=== PATIENT | female | born 1970 | race Caucasian/White ===

== ENCOUNTER → 2017-09-27 13:54 | Outpatient (CLI) | payer OTHER, SELFPAY ==
[2017-09-27 15:51] LABS: International Normalized Ratio 2.2; Prothrombin Time (Protime)PT. 24.1 SECONDS (11.7-14.9)
== END ==
PROVIDERS: Family Provider Family Medicine; PCP Family Medicine; Visit Provider Family Medicine
DX: Z79.01 Long term (current) use of anticoagulants (principal)
CPT/HCPCS: 36415; 85610

== ENCOUNTER → 2018-04-12 12:45 | Outpatient (CLI) | payer OTHER, SELFPAY ==
[2018-04-12 14:28] LABS: International Normalized Ratio 2.3; Prothrombin Time (Protime)PT. 25.8 SECONDS (11.7-14.9)
[2018-04-12 14:37] LABS: Hemoglobin A1c 5.6 % (4.2-6.3)
[2018-04-12 14:43] LABS: AST(SGOT) 18 U/L (15-37); Alanine Aminotransfer ALT/SGPT 25 U/L (13-56); Albumin, Serum 3.6 g/dL (3.2-5.0); Alkaline Phosphatase 42 U/L (45-117); Anion Gap 9 (5-15); BUN 13 mg/dL (7-18); BUN/Creat Ratio 16.9 RATIO (10-20); Calcium,Total 8.4 mg/dL (8.5-10.1); Chloride 106 mmol/L (98-107); Cholesterol 189 mg/dL (200); Creatinine, Serum 0.77 mg/dL (0.55-1.02); EST Glomerular Filtration Rate 86 mL/min (>60); Est Glom Filt Rate - Afr Amer 104 mL/min (>60); Globulin 3.5 g/dL (2.2-4.2); Glucose 77 mg/dL (74-106); High Density Lipoprotein 38 mg/dL; Potassium 4.3 mmol/L (3.5-5.1); Protein, Total 7.1 g/dL (6.4-8.2); Sodium Level 141 mmol/L (136-145); Triglycerides 147 mg/dL; Very Low Density Lipoprotein 29 mg/dL (5-40)
== END ==
PROVIDERS: Family Provider Family Medicine; PCP Family Medicine; Referring Provider Family Medicine; Visit Provider Family Medicine
DX: Z00.00 Encounter for general adult medical examination without abnormal findings (principal); D68.2 Hereditary deficiency of other clotting factors; E66.01 Morbid (severe) obesity due to excess calories
CPT/HCPCS: 36415; 80053; 80061; 83036; 85610

== ENCOUNTER → 2018-09-15 | Outpatient (CLI) | payer OTHER, SELFPAY ==
[2018-09-15 16:15] LABS: Prothrombin Time (Protime)PT. 38.9 SECONDS (11.7-14.9)
[2018-09-15 17:28] LABS: International Normalized Ratio 3.9
== END | disposition home or self-care (01) ==
LOC: MFPLAB 11:38
PROVIDERS: Family Provider Family Medicine; PCP Family Medicine; Referring Provider Family Medicine; Visit Provider Family Medicine
DX: D68.2 Hereditary deficiency of other clotting factors (principal)
CPT/HCPCS: 36415; 85610

== ENCOUNTER → 2018-09-22 | Outpatient (CLI) | payer OTHER, SELFPAY ==
[2018-09-22 12:42] LABS: International Normalized Ratio 2.3; Prothrombin Time (Protime)PT. 25.7 SECONDS (11.7-14.9)
== END | disposition home or self-care (01) ==
LOC: MFPLAB 11:14
PROVIDERS: Family Provider Family Medicine; PCP Family Medicine; Referring Provider Family Medicine; Visit Provider Family Medicine
DX: D68.2 Hereditary deficiency of other clotting factors (principal)
CPT/HCPCS: 36415; 85610

== ENCOUNTER → 2019-06-26 10:19 | Outpatient (CLI) | payer OTHER, SELFPAY ==
[2019-06-26 12:22] LABS: Prothrombin Time (Protime)PT. 38.5 SECONDS (11.7-14.9)
[2019-06-26 12:28] LABS: International Normalized Ratio 3.9
[2019-06-26 12:31] LABS: Hemoglobin A1c 5.4 % (4.2-6.3)
[2019-06-26 12:40] LABS: ALB/GLOB Ratio 1.1 RATIO (0.9-2.4); AST(SGOT) 18 U/L (15-37); Alanine Aminotransfer ALT/SGPT 20 U/L (13-56); Albumin, Serum 3.8 g/dL (3.2-5.0); Alkaline Phosphatase 35 U/L (45-117); Anion Gap 6 (5-15); BUN 9 mg/dL (7-18); BUN/Creat Ratio 10.9 RATIO (10-20); Calcium,Total 9.1 mg/dL (8.5-10.1); Chloride 110 mmol/L (98-107); Cholesterol 150 mg/dL (200); Creatinine, Serum 0.82 mg/dL (0.55-1.02); EST Glomerular Filtration Rate 79 mL/min (>60); Est Glom Filt Rate - Afr Amer 95 mL/min (>60); Globulin 3.5 g/dL (2.2-4.2); Glucose 83 mg/dL (74-106); High Density Lipoprotein 32 mg/dL; Potassium 4.4 mmol/L (3.5-5.1); Protein, Total 7.3 g/dL (6.4-8.2); Sodium Level 140 mmol/L (136-145)
== END ==
PROVIDERS: PCP Family Medicine; Referring Provider Family Medicine; Visit Provider Family Medicine
DX: E78.00 Pure hypercholesterolemia, unspecified (principal); E66.01 Morbid (severe) obesity due to excess calories; I10 Essential (primary) hypertension; Z79.01 Long term (current) use of anticoagulants
CPT/HCPCS: 36415; 80053; 82465; 83036; 83718; 85610

== ENCOUNTER → 2019-10-23 10:17 | Outpatient (CLI) | payer OTHER, SELFPAY ==
[2019-10-23 12:35] LABS: Absolute Lymphocyte Count 1.12 X10^3/uL (0.83-4.51); Absolute Neutrophil Count 2.5 X10^3/uL (2.0-7.7); Basophil# 0.03 X10^3/uL; Basophil% 0.7 % (0-1); Eosinophil# 0.13 X10^3/uL; Eosinophils% 3.1 % (0-5); Hemoglobin 13.6 g/dL (12.0-15.0); Lymphocyte # 1.12 X10^3/ul (4.0); Mean Corp Hgb Conc 31.6 g/dL (32-36); Mean Corpuscular Hgb 29.4 pg (27.0-32.0); Mean Corpuscular Volume 93.1 fL (81-99); Mean Platelet Vol. 10.9 fl (6.2-12.0); Monocyte% 9.6 % (0-10); NRBC Flagged by Analyzer 0 % (0-5); Neutrophil # 2.46 X10^3/uL (2.7-7.7); Neutrophil % 59.4 % (47-70); Platelet Count 271 K/mm3 (150-450); RBC Distribution Width CV 13.5 % (11.6-14.6); RBC Distribution Width SD 45.7 fl (35.1-43.9); Red Blood Count 4.62 M/mm3 (4.2-5.4); White Blood Count 4.2 K/mm3 (4.4-11.0)
[2019-10-23 12:44] LABS: International Normalized Ratio 3.2; Prothrombin Time (Protime)PT. 32.5 SECONDS (11.7-14.9)
[2019-10-23 13:49] LABS: AST(SGOT) 14 U/L (15-37); Alanine Aminotransfer ALT/SGPT 21 U/L (13-56); Albumin, Serum 3.4 g/dL (3.2-5.0); Alkaline Phosphatase 42 U/L (45-117); Anion Gap 8 (5-15); BUN 19 mg/dL (7-18); BUN/Creat Ratio 23.6 RATIO (10-20); Calcium,Total 8.6 mg/dL (8.5-10.1); Chloride 107 mmol/L (98-107); Creatinine, Serum 0.81 mg/dL (0.55-1.02); EST Glomerular Filtration Rate 81 mL/min (>60); Est Glom Filt Rate - Afr Amer 98 mL/min (>60); Ferritin 22 ng/mL (8-252); Globulin 3.4 g/dL (2.2-4.2); Glucose 88 mg/dL (74-106); Iron 105 ug/dL (50-170); Potassium 4.2 mmol/L (3.5-5.1); Protein, Total 6.8 g/dL (6.4-8.2); Sodium Level 138 mmol/L (136-145)
== END ==
PROVIDERS: PCP Family Medicine; Referring Provider Family Medicine; Visit Provider Family Medicine
DX: R25.2 Cramp and spasm (principal); Z79.01 Long term (current) use of anticoagulants
CPT/HCPCS: 36415; 80053; 82728; 83540; 85025; 85610

== ENCOUNTER → 2020-03-18 11:45 | Outpatient (CLI) | payer OTHER, SELFPAY ==
[2020-03-18 15:23] LABS: International Normalized Ratio 2.1; Prothrombin Time (Protime)PT. 22.6 SECONDS (11.7-14.9)
== END ==
PROVIDERS: PCP Family Medicine; Visit Provider Family Medicine
DX: D68.2 Hereditary deficiency of other clotting factors (principal)
CPT/HCPCS: 36415; 85610

== ENCOUNTER → 2020-07-02 09:43 | Outpatient (CLI) | payer OTHER, SELFPAY ==
[2020-07-02 12:51] LABS: Prothrombin Time (Protime)PT. 21.8 SECONDS (11.7-14.9)
[2020-07-02 13:07] LABS: Absolute Lymphocyte Count 0.99 X10^3/uL (0.83-4.51); Absolute Neutrophil Count 3.2 X10^3/uL (2.0-7.7); Basophil# 0.03 X10^3/uL; Basophil% 0.6 % (0-1); Eosinophil# 0.09 X10^3/uL; Eosinophils% 1.9 % (0-5); Hematocrit 45.1 % (37-47); Hemoglobin 14.4 g/dL (12.0-15.0); Lymphocyte # 0.99 X10^3/ul (4.0); Mean Corp Hgb Conc 31.9 g/dL (32-36); Mean Corpuscular Hgb 29.4 pg (27.0-32.0); Mean Corpuscular Volume 92.2 fL (81-99); Mean Platelet Vol. 10.7 fl (6.2-12.0); Monocyte% 8.5 % (0-10); NRBC Flagged by Analyzer 0 % (0-5); Neutrophil % 67.8 % (47-70); Platelet Count 236 K/mm3 (150-450); RBC Distribution Width CV 13.1 % (11.6-14.6); RBC Distribution Width SD 44.4 fl (35.1-43.9); Red Blood Count 4.89 M/mm3 (4.2-5.4); White Blood Count 4.7 K/mm3 (4.4-11.0)
[2020-07-02 13:26] LABS: ALB/GLOB Ratio 1.1 RATIO (0.9-2.4); AST(SGOT) 17 U/L (15-37); Alanine Aminotransfer ALT/SGPT 25 U/L (13-56); Albumin, Serum 3.9 g/dL (3.2-5.0); Alkaline Phosphatase 38 U/L (45-117); Anion Gap 6 (5-15); BUN 19 mg/dL (7-18); Calcium,Total 8.9 mg/dL (8.5-10.1); Chloride 107 mmol/L (98-107); Cholesterol 191 mg/dL (200); Creatinine, Serum 0.79 mg/dL (0.55-1.02); EST Glomerular Filtration Rate 82 mL/min (>60); Est Glom Filt Rate - Afr Amer 99 mL/min (>60); Ferritin 21 ng/mL (8-252); Globulin 3.4 g/dL (2.2-4.2); Glucose 78 mg/dL (74-106); High Density Lipoprotein 48 mg/dL; Magnesium 1.9 mg/dL (1.6-2.6); Potassium 3.9 mmol/L (3.5-5.1); Protein, Total 7.3 g/dL (6.4-8.2); Sodium Level 138 mmol/L (136-145); Triglycerides 81 mg/dL; Very Low Density Lipoprotein 16 mg/dL (5-40)
[2020-07-05 14:09] LABS: Beef <0.10 kU/L (Class 0); Chocolate <0.10 kU/L (Class 0); Corn <0.10 kU/L (Class 0); Egg, Whole <0.10 kU/L (Class 0); Milk (Cow) <0.10 kU/L (Class 0); Peanut <0.10 kU/L (Class 0); Pork <0.10 kU/L (Class 0); Shrimp <0.10 kU/L (Class 0); Soybean <0.10 kU/L (Class 0); Wheat <0.10 kU/L (Class 0)
[2020-07-05 20:48] LABS: Clam <0.10 kU/L (Class 0)
== END ==
PROVIDERS: PCP Family Medicine; Referring Provider Family Medicine; Visit Provider Family Medicine
DX: E78.5 Hyperlipidemia, unspecified (principal); Z91.013 Allergy to seafood; Z79.01 Long term (current) use of anticoagulants; R25.2 Cramp and spasm; E78.6 Lipoprotein deficiency
CPT/HCPCS: 36415; 80053; 80061; 82728; 83735; 85025; 85610; 86003; 86005

== ENCOUNTER → 2020-07-10 12:32 | Outpatient (CLI) | payer OTHER, SELFPAY ==
--- NOTE | 2020-07-10 12:35 | BI_ITS ---
MAMMOGRAPHY - BILATERAL SCREENING REASON FOR EXAM: Female, 49 years old. Routine annual screening examination. PERTINENT HISTORY: Non-contributory. TECHNIQUE: Digital bilateral breast lenora (3D mammographic acquisition) in the CC and MLO projections. 2-D mediolateral oblique (MLO) and craniocaudad (CC) views of both breasts were obtained. CAD: Full Field Digital Mammography with Computer Added Detection was performed. COMPARISON: Comparison is made with prior study dated 09/30/2012. FINDINGS: Breast Composition: There are scattered areas of fibroglandular density. There are no dominant masses or suspicious calcifications. Stable small benign-appearing bilateral axillary lymph nodes. No other significant abnormalities are identified. There has been no significant change since the prior study. BI/SCRN MAMM (CAD)W/LENORA BILAT IMPRESSION: Stable bilateral screening mammogram. Yearly follow-up mammogram recommended. (A) ASSESSMENT CATEGORY: BIRADS Category 2: Benign. A letter regarding these results will be sent to the patient by the facility within 30 days. Approximately 10% of breast cancers are not detected by mammography. A normal mammogram should not delay biopsy of a clinically suspicious abnormality. [id number] Electronically Signed: Brayden Gallego MD at 13:51 EST , Service support ,
== END ==
PROVIDERS: PCP Family Medicine; Referring Provider Family Medicine; Visit Provider Family Medicine
DX: Z12.31 Encounter for screening mammogram for malignant neoplasm of breast (principal)
CPT/HCPCS: 77063; 77067

== ENCOUNTER → 2021-02-07 11:49 | Outpatient (CLI) | payer OTHER, SELFPAY ==
[2021-02-07 15:09] LABS: Prothrombin Time (Protime)PT. 22.1 SECONDS (11.7-14.9)
== END ==
PROVIDERS: PCP Family Medicine; Referring Provider Family Medicine; Visit Provider Family Medicine
DX: Z79.01 Long term (current) use of anticoagulants (principal)
CPT/HCPCS: 36415; 85610

== ENCOUNTER → 2021-05-15 08:56 | Outpatient (CLI) | payer OTHER, SELFPAY ==
[2021-05-15 10:48] LABS: International Normalized Ratio 2.1; Prothrombin Time (Protime)PT. 22.4 SECONDS (11.7-14.9)
== END ==
PROVIDERS: PCP Family Medicine; Referring Provider Family Medicine; Visit Provider Family Medicine
DX: Z79.01 Long term (current) use of anticoagulants (principal)
CPT/HCPCS: 36415; 85610

== ENCOUNTER 2021-07-07 11:01 | Outpatient (CLI) | payer OTHER, SELFPAY ==
[2021-07-07 12:05] LABS: Absolute Lymphocyte Count 1.01 X10^3/uL (0.83-4.51); Absolute Neutrophil Count 3.3 X10^3/uL (2.0-7.7); Basophil# 0.02 X10^3/uL; Basophil% 0.4 % (0-1); Eosinophils% 2.1 % (0-5); Hematocrit 42.8 % (37-47); Hemoglobin 14.1 g/dL (12.0-15.0); Lymphocyte # 1.01 X10^3/ul (0.83-4.51); Mean Corp Hgb Conc 32.9 g/dL (32-36); Mean Corpuscular Hgb 29.7 pg (27.0-32.0); Mean Corpuscular Volume 90.1 fL (81-99); Mean Platelet Vol. 10.2 fl (6.2-12.0); Monocyte# 0.41 X10^3/uL; Monocyte% 8.5 % (0-10); NRBC Flagged by Analyzer 0 % (0-5); Neutrophil # 3.27 X10^3/uL (2.7-7.7); Neutrophil % 67.8 % (47-70); Platelet Count 231 K/mm3 (150-450); RBC Distribution Width CV 13.6 % (11.6-14.6); RBC Distribution Width SD 45.2 fl (35.1-43.9); Red Blood Count 4.75 M/mm3 (4.2-5.4); White Blood Count 4.8 K/mm3 (4.4-11.0)
[2021-07-07 12:15] LABS: International Normalized Ratio 1.8; Prothrombin Time (Protime)PT. 19.7 SECONDS (11.7-14.9)
[2021-07-07 12:56] LABS: Microalbumin,Random Urine 10.6 mg/L (NO RANGE EST.); Microalbumin:Creatinine Ratio 5.8 mg/g CRE (<30 mg/g CRE)
[2021-07-07 14:12] LABS: Hemoglobin A1c 5.2 % (3.8-5.6)
[2021-07-07 14:20] LABS: ALB/GLOB Ratio 1.1 RATIO (0.9-2.4); AST(SGOT) 14 U/L (15-37); Alanine Aminotransfer ALT/SGPT 24 U/L (13-56); Albumin, Serum 3.6 g/dL (3.2-5.0); Alkaline Phosphatase 33 U/L (45-117); Anion Gap 9 (5-15); BUN 17 mg/dL (7-18); BUN/Creat Ratio 25.3 RATIO (10-20); Calcium,Total 8.7 mg/dL (8.5-10.1); Chloride 107 mmol/L (98-107); Creatinine, Serum 0.67 mg/dL (0.55-1.02); EST Glomerular Filtration Rate 99 mL/min (>60); Est Glom Filt Rate - Afr Amer 120 mL/min (>60); Globulin 3.4 g/dL (2.2-4.2); Glucose 87 mg/dL (74-106); Sodium Level 140 mmol/L (136-145); Thyroid Stim Hormone (TSH) 2.56 uIU/mL (0.358-3.74)
[2021-07-10 20:39] LABS: HPV Reflexed? YES, CHARGE PATIENT
== END 2021-07-07 23:59 | disposition home or self-care (01) ==
LOC: MFPLAB 11:04
PROVIDERS: PCP Family Medicine; Visit Provider Family Medicine
DX: Z12.4 Encounter for screening for malignant neoplasm of cervix (principal); E66.01 Morbid (severe) obesity due to excess calories; D68.2 Hereditary deficiency of other clotting factors; R00.0 Tachycardia, unspecified; I10 Essential (primary) hypertension; R42 Dizziness and giddiness; Z79.01 Long term (current) use of anticoagulants
CPT/HCPCS: 36415; 80053; 82043; 82570; 83036; 84443; 85025; 85610; 87624; 88175; G0145

== ENCOUNTER 2021-08-04 15:00 | Outpatient (CLI) | payer OTHER, SELFPAY ==
[2021-08-04 17:44] LABS: Absolute Lymphocyte Count 1.37 X10^3/uL (0.83-4.51); Absolute Neutrophil Count 3.3 X10^3/uL (2.0-7.7); Basophil# 0.04 X10^3/uL; Basophil% 0.8 % (0-1); Eosinophil# 0.18 X10^3/uL; Eosinophils% 3.4 % (0-5); Hemoglobin 14.7 g/dL (12.0-15.0); Lymphocyte # 1.37 X10^3/ul (0.83-4.51); Lymphocyte % 25.8 % (19-41); Mean Corp Hgb Conc 32.7 g/dL (32-36); Mean Corpuscular Hgb 30.1 pg (27.0-32.0); Mean Platelet Vol. 10.3 fl (6.2-12.0); Monocyte% 7.5 % (0-10); NRBC Flagged by Analyzer 0 % (0-5); Neutrophil # 3.31 X10^3/uL (2.7-7.7); Neutrophil % 62.3 % (47-70); Platelet Count 276 K/mm3 (150-450); RBC Distribution Width CV 13.8 % (11.6-14.6); RBC Distribution Width SD 47.1 fl (35.1-43.9); Red Blood Count 4.89 M/mm3 (4.2-5.4); White Blood Count 5.3 K/mm3 (4.4-11.0)
[2021-08-04 18:02] LABS: International Normalized Ratio 2.6; Prothrombin Time (Protime)PT. 27.4 SECONDS (11.7-14.9)
[2021-08-04 18:09] LABS: AST(SGOT) 21 U/L (15-37); Alanine Aminotransfer ALT/SGPT 31 U/L (13-56); Albumin, Serum 3.6 g/dL (3.2-5.0); Alkaline Phosphatase 37 U/L (45-117); Anion Gap 4 (5-15); BUN 20 mg/dL (7-18); BUN/Creat Ratio 28.6 RATIO (10-20); Calcium,Total 9.1 mg/dL (8.5-10.1); Chloride 108 mmol/L (98-107); EST Glomerular Filtration Rate 94 mL/min (>60); Est Glom Filt Rate - Afr Amer 114 mL/min (>60); Globulin 3.5 g/dL (2.2-4.2); Glucose 94 mg/dL (74-106); Magnesium 2.1 mg/dL (1.6-2.6); Potassium 4.5 mmol/L (3.5-5.1); Protein, Total 7.1 g/dL (6.4-8.2); Sodium Level 138 mmol/L (136-145)
== END 2021-08-04 23:59 | disposition home or self-care (01) ==
PROVIDERS: PCP Family Medicine; Visit Provider Family Medicine
DX: R19.7 Diarrhea, unspecified (principal); Z79.01 Long term (current) use of anticoagulants
CPT/HCPCS: 36415; 80053; 83735; 85025; 85610

== ENCOUNTER → 2021-12-12 | Outpatient (CLI) | payer OTHER, SELFPAY ==
--- NOTE | 2021-12-12 12:44 | BI_ITS ---
MAMMOGRAPHY - BILATERAL SCREENING REASON FOR EXAM: Female, 51 years old. Routine annual screening examination. PERTINENT HISTORY: Non-contributory. TECHNIQUE: Digital bilateral breast bhaskar (3D mammographic acquisition) in the CC and MLO projections. 2-D mediolateral oblique (MLO) and craniocaudad (CC) views of both breasts were obtained. CAD: Full Field Digital Mammography with Computer Added Detection was performed. COMPARISON: Comparison is made with prior study dated 07/10/2020 and 09/30/2012. FINDINGS: Breast Composition: There are scattered areas of fibroglandular density. There are no dominant masses or suspicious calcifications. Stable benign-appearing bilateral axillary lymph nodes. No other significant abnormalities are identified. There has been no significant change since the prior study. BI/SCREENING MAMM (CAD), BILAT IMPRESSION: Stable bilateral screening mammogram. Yearly follow-up mammogram recommended. (A) ASSESSMENT CATEGORY: BIRADS Category 2: Benign. A letter regarding these results will be sent to the patient by the facility within 30 days. Approximately 10% of breast cancers are not detected by mammography. A normal mammogram should not delay biopsy of a clinically suspicious abnormality. [id number] Electronically Signed: Brayden Gallego MD at 14:14 EDT ,
== END | disposition home or self-care (01) ==
LOC: OPBI 12:43
PROVIDERS: PCP Family Medicine; Referring Provider Family Medicine; Visit Provider Family Medicine
DX: Z00.00 Encounter for general adult medical examination without abnormal findings (principal); Z12.31 Encounter for screening mammogram for malignant neoplasm of breast
CPT/HCPCS: 77067

== ENCOUNTER 2021-12-19 11:23 | Outpatient (RCR) | payer OTHER, SELFPAY ==
[2021-12-19 12:20] LABS: International Normalized Ratio 1.9; Prothrombin Time (Protime)PT. 21.8 SECONDS (11.7-14.9)
== END 2021-12-21 03:10 | disposition home or self-care (01) ==
LOC: LAB 11:23
PROVIDERS: PCP Family Medicine; Referring Provider Family Medicine; Visit Provider Family Medicine
DX: Z79.01 Long term (current) use of anticoagulants (principal); D68.2 Hereditary deficiency of other clotting factors
CPT/HCPCS: 36415; 85610

== ENCOUNTER → 2022-07-09 | Outpatient (CLI) | payer OTHER, SELFPAY ==
[2022-07-09 15:19] LABS: Absolute Lymphocyte Count 1.05 X10^3/uL (0.83-4.51); Absolute Neutrophil Count 3.3 X10^3/uL (2.0-7.7); Basophil# 0.02 X10^3/uL; Basophil% 0.4 % (0-1); Eosinophil# 0.08 X10^3/uL; Eosinophils% 1.7 % (0-5); Hematocrit 45.6 % (37-47); Hemoglobin 14.3 g/dL (12.0-15.0); Lymphocyte # 1.05 X10^3/ul (0.83-4.51); Lymphocyte % 21.8 % (19-41); Mean Corp Hgb Conc 31.4 g/dL (32-36); Mean Corpuscular Hgb 29.5 pg (27.0-32.0); Mean Platelet Vol. 10.6 fl (6.2-12.0); Monocyte# 0.36 X10^3/uL; Monocyte% 7.5 % (0-10); NRBC Flagged by Analyzer 0 % (0-5); Neutrophil # 3.29 X10^3/uL (2.7-7.7); Neutrophil % 68.4 % (47-70); Platelet Count 243 K/mm3 (150-450); RBC Distribution Width CV 14.3 % (11.6-14.6); RBC Distribution Width SD 49.5 fl (35.1-43.9); Red Blood Count 4.85 M/mm3 (4.2-5.4); White Blood Count 4.8 K/mm3 (4.4-11.0)
[2022-07-09 15:29] LABS: Hemoglobin A1c 5.4 % (3.8-5.6)
[2022-07-09 15:33] LABS: ALB/GLOB Ratio 1.1 RATIO (0.9-2.4); AST(SGOT) 15 U/L (15-37); Alanine Aminotransfer ALT/SGPT 24 U/L (13-56); Albumin, Serum 3.7 g/dL (3.2-5.0); Alkaline Phosphatase 31 U/L (45-117); Anion Gap 7 (5-15); BUN 18 mg/dL (7-18); BUN/Creat Ratio 26.4 RATIO (10-20); Calcium,Total 8.9 mg/dL (8.5-10.1); Chloride 105 mmol/L (98-107); Cholesterol 233 mg/dL (200); Creatinine, Serum 0.68 mg/dL (0.55-1.02); EST Glomerular Filtration Rate 97 mL/min (>60); Est Glom Filt Rate - Afr Amer 117 mL/min (>60); Globulin 3.3 g/dL (2.2-4.2); Glucose 84 mg/dL (74-106); High Density Lipoprotein 50 mg/dL; Potassium 4.7 mmol/L (3.5-5.1); Sodium Level 140 mmol/L (136-145); Thyroid Stim Hormone (TSH) 2.04 uIU/mL (0.358-3.74); Triglycerides 91 mg/dL; Very Low Density Lipoprotein 18 mg/dL (5-40)
[2022-07-09 15:37] LABS: Microalbumin,Random Urine 7.6 mg/L (NO RANGE EST.); Microalbumin:Creatinine Ratio 6.7 mg/g CRE (<30 mg/g CRE)
== END | disposition home or self-care (01) ==
LOC: MFPLAB 11:30
PROVIDERS: PCP Family Medicine; Referring Provider Family Medicine; Visit Provider Family Medicine
DX: Z00.00 Encounter for general adult medical examination without abnormal findings (principal)
CPT/HCPCS: 36415; 80053; 80061; 82043; 82570; 83036; 84443; 85025

== ENCOUNTER 2022-11-06 16:20 | Outpatient (CLI) | payer OTHER, SELFPAY ==
[2022-11-06 18:16] LABS: International Normalized Ratio 1.8; Prothrombin Time (Protime)PT. 20.9 SECONDS (11.7-14.9)
== END 2022-11-06 23:59 | disposition home or self-care (01) ==
LOC: MFPLAB 16:21
PROVIDERS: PCP Family Medicine; Visit Provider Family Medicine
DX: Z79.01 Long term (current) use of anticoagulants (principal)
CPT/HCPCS: 36415; 85610

== ENCOUNTER → 2022-12-02 | Outpatient (CLI) | payer OTHER, SELFPAY ==
[2022-12-02 18:01] LABS: International Normalized Ratio 1.9; Prothrombin Time (Protime)PT. 21.7 SECONDS (11.7-14.9)
== END | disposition home or self-care (01) ==
LOC: MFPLAB 14:40
PROVIDERS: PCP Family Medicine; Visit Provider Family Medicine
DX: D68.2 Hereditary deficiency of other clotting factors (principal)
CPT/HCPCS: 36415; 85610

== ENCOUNTER → 2022-12-16 | Outpatient (CLI) | payer OTHER, SELFPAY ==
--- NOTE | 2022-12-16 10:45 | BI_ITS ---
MAMMOGRAPHY - BILATERAL SCREENING REASON FOR EXAM: Female, 52 years old. Routine annual screening examination. PERTINENT HISTORY: Non-contributory. TECHNIQUE: Digital bilateral breast lenora (3D mammographic acquisition) in the CC and MLO projections. 2-D mediolateral oblique (MLO) and craniocaudad (CC) views of both breasts were obtained. CAD: Full Field Digital Mammography with Computer Added Detection was performed. COMPARISON: Comparison is made with prior study dated December 12, 2021 and July 10, 2020. FINDINGS: Breast Composition: There are scattered areas of fibroglandular density. There are no dominant masses or suspicious calcifications. Stable small benign-appearing bilateral axillary lymph nodes. No other significant abnormalities are identified. There has been no significant change since the prior study. BI/SCRN MAMM (CAD)W/LENORA BILAT IMPRESSION: Stable bilateral screening mammogram. Yearly follow-up mammogram recommended. (A) ASSESSMENT CATEGORY: BIRADS Category 2: Benign. A letter regarding these results will be sent to the patient by the facility within 30 days. Approximately 10% of breast cancers are not detected by mammography. A normal mammogram should not delay biopsy of a clinically suspicious abnormality. [id number] Electronically Signed: Brayden Gallego MD at 12:20 EDT ,
== END | disposition home or self-care (01) ==
LOC: OPBI 10:33
PROVIDERS: PCP Family Medicine; Referring Provider Family Medicine; Visit Provider Family Medicine
DX: Z12.31 Encounter for screening mammogram for malignant neoplasm of breast (principal)
CPT/HCPCS: 77063; 77067

== ENCOUNTER → 2023-04-22 | Outpatient (CLI) | payer OTHER, SELFPAY ==
[2023-04-22 18:06] LABS: International Normalized Ratio 2.1; Prothrombin Time (Protime)PT. 23.8 SECONDS (11.7-14.9)
== END | disposition home or self-care (01) ==
LOC: MFPLAB 14:38
PROVIDERS: PCP Family Medicine; Visit Provider Family Medicine
DX: D68.2 Hereditary deficiency of other clotting factors (principal)
CPT/HCPCS: 36415; 85610

== ENCOUNTER → 2023-07-20 | Outpatient (CLI) | payer OTHER, SELFPAY ==
--- NOTE | 2023-07-20 09:00 | LES_PTH ---
PATHOLOGY RESULTS PATIENT: GAYLE SOTELO LOC: [facility] U#:[id number] AGE/SX: 52/F ROOM: RE07/20/[address]: Dr. Giovany Whittington MD : 1970 BED: DIS: 07/20/2023 SPEC #: [id number] RECD: 07/20/23 10:58 STATUS: ADILSON SANJAY #: [id number] MARY: 07/20/23 09:[address]: Giovany Whittington DEPT: SURGICAL PATHOLOGY RECD BY: Celia Vick ENTERED: 07/20/23 10:59 SP TYPE: Lesion Tissues: Skin of forehead Procedures: Surgery Specimen Level III HEADER OPERATION: Shave biopsy skin PRE-OP DIAGNOSIS: Nonhealing lesion TISSUE SUBMITTED: Left forehead shave biopsy MICROSCOPIC DIAGNOSIS Left forehead lesion, shave biopsy: Basal cell carcinoma, extending up to the deep margin of the specimen. DARLENE:heaven 07/21/2023 MICROSCOPIC DESCRIPTION Slides are reviewed. GROSS DESCRIPTION Received in fixative is one container labeled with the patient's name and designated forehead shave biopsy. The specimen consists of a shave biopsy of moralez-white skin measuring 0.6 x 0.4 x 0.1 cm. The specimen is inked, bisected and submitted entirely in one cassette. / SJ:rg 07/20/2023 TC:0 [facility]: [id number]
[2023-07-20 12:16] LABS: Absolute Lymphocyte Count 0.85 X10^3/uL (0.83-4.51); Absolute Neutrophil Count 2.7 X10^3/uL (2.0-7.7); Basophil# 0.03 X10^3/uL; Basophil% 0.7 % (0-1); Eosinophil# 0.07 X10^3/uL; Eosinophils% 1.7 % (0-5); Hemoglobin 13.9 g/dL (12.0-15.0); Lymphocyte # 0.85 X10^3/ul (0.83-4.51); Lymphocyte % 21.2 % (19-41); Mean Corp Hgb Conc 32.3 g/dL (32-36); Mean Corpuscular Volume 92.9 fL (81-99); Mean Platelet Vol. 10.4 fl (6.2-12.0); Monocyte# 0.32 X10^3/uL; NRBC Flagged by Analyzer 0 % (0-5); Neutrophil # 2.73 X10^3/uL (2.7-7.7); Neutrophil % 68.2 % (47-70); Platelet Count 231 K/mm3 (150-450); RBC Distribution Width SD 47.8 fl (35.1-43.9); Red Blood Count 4.63 M/mm3 (4.2-5.4)
[2023-07-20 12:27] LABS: International Normalized Ratio 2.2; Prothrombin Time (Protime)PT. 24.2 SECONDS (11.7-14.9)
[2023-07-20 12:49] LABS: Creatinine, Urine (random) < 13.00 mg/dL (NO RANGE EST.); Microalbumin,Random Urine < 5.0 mg/L (NO RANGE EST.)
[2023-07-20 13:21] LABS: ALB/GLOB Ratio 1.1 RATIO (0.9-2.4); AST(SGOT) 31 U/L (15-37); Alanine Aminotransfer ALT/SGPT 61 U/L (13-56); Albumin, Serum 3.9 g/dL (3.2-5.0); Alkaline Phosphatase 42 U/L (45-117); Anion Gap 6 (5-15); BUN 20 mg/dL (7-18); BUN/Creat Ratio 27.6 RATIO (10-20); Calcium,Total 9.2 mg/dL (8.5-10.1); Chloride 108 mmol/L (98-107); Cholesterol 179 mg/dL (200); Creatinine, Serum 0.72 mg/dL (0.55-1.02); EST Glomerular Filtration Rate 90 mL/min (>60); Est Glom Filt Rate - Afr Amer 109 mL/min (>60); Ferritin 122 ng/mL (8-252); Globulin 3.4 g/dL (2.2-4.2); Glucose 81 mg/dL (74-106); High Density Lipoprotein 42 mg/dL; Potassium 4.1 mmol/L (3.5-5.1); Protein, Total 7.3 g/dL (6.4-8.2); Sodium Level 140 mmol/L (136-145); Triglycerides 55 mg/dL; Very Low Density Lipoprotein 11 mg/dL (5-40)
[2023-07-23 10:09] LABS: QNTFERON TB Mitogen Value > 10.00 IU/mL (.); QNTFERON TB Nil Value 0 IU/mL (.); QNTFERON TB1+ Ag Value 0.03 IU/mL (.); QNTFERON TB2+ Ag Value 0.01 IU/mL (.); QNTIFERON TB Positive Criteria Negative (Negative)
== END | disposition home or self-care (01) ==
PROVIDERS: PCP Family Medicine; Referring Provider Family Medicine; Visit Provider Family Medicine
DX: L98.9 Disorder of the skin and subcutaneous tissue, unspecified (principal); D68.2 Hereditary deficiency of other clotting factors; I10 Essential (primary) hypertension; N95.1 Menopausal and female climacteric states
CPT/HCPCS: 36415; 80053; 80061; 82043; 82570; 82728; 85025; 85610; 86480; 88304; 88305

== ENCOUNTER 2023-08-13 05:53 | Day surgery (SDC) | payer OTHER, SELFPAY ==
[2023-08-13 06:25] VITALS: BP 91/45; PULSE 72; RESP 17; TEMP 37; O2SAT 100; BMI 25.0
--- NOTE | 2023-08-13 07:07 | PCM.HP.BLA ---
History and Physical Date of Admission: 08/13/23 Interim note: Pt examined and there are no changes to the exam of 07/27/23. Pt with hx of bx lesion forehead which was consistent with BCC with + deep margin. She presents for excision of site with FS evaluation of margins. Assessment & Plan Assessment/Plan (1) Basal cell carcinoma (BCC) of forehead: PLAN: Plan BCC forehead--for excision with FS
[2023-08-13] MEDS: Povidone Iodine 30 ML Opthalmic Sol 1 DRP (07:35)
[2023-08-13] MEDS: Lidocaine 1% /Epi 1:100 9 ML, Sodium Bicarbonate 1 MEQ OPERA.SITE (07:41)
[2023-08-13 07:45] VITALS: BP 103/43; BP 88/38; BP 98/45; O2SAT 100; O2SAT 98; O2SAT 99
--- NOTE | 2023-08-13 07:57 | LES_PTH ---
PATIENT: GAYLE SOTELO LOC: [facility] U#:[id number] AGE/SX: 52/F ROOM: RE08/13/[address]: Dr. Vera Deleon MD : 1970 BED: DIS: 08/13/2023 SPEC #: [id number] RECD: 08/13/23 08:54 STATUS: ADILSON GRACE #: [id number] MARY: 08/13/23 07:[address]: Vera Deelon DEPT: SURGICAL PATHOLOGY RECD BY: Eleuterio Matthews ENTERED: 08/13/23 08:55 SP TYPE: Lesion OTHR DR: Dr. Giovany Whittington MD Tissues: Skin of forehead Procedures: Frozen Section (charge) Surgery Specimen Level IV HEADER OPERATION: Excision basal cell carcinoma forehead with frozen section PRE-OP DIAGNOSIS: Basal cell carcinoma (BBC) of forehead TISSUE SUBMITTED: Basal cell carcinoma, forehead FROZEN SECTION DIAGNOSIS Forehead lesion, excisional biopsy; Margins are free of tumor. SJ:heaven 08/13/23 MICROSCOPIC DIAGNOSIS Lesion of forehead, excision, biopsy; Basal cell carcinoma, completely excised. Solar elastosis Cicatrix. See comment. JUDD/ 08/16/2023 COMMENT Reference is made to the patient's left forehead lesion shave biopsy ([id number]) in which basal cell carcinoma extending to deep margin was identified. MICROSCOPIC DESCRIPTION Slides are reviewed. GROSS DESCRIPTION Received fresh for frozen section diagnosis labeled with the patient's name is a specimen designated Forehead lesion. The specimen consists of a piece of moralez-white skin ellipse measuring 1.5 x 0.75 x 0.25 cm. This specimen is oriented by a surgical gauze piece and measures and inked follows: The specimen is inked as follows: 12 to 3 o'clock - black, 3 to 6 o'clock - blue, 6 to 9 o'clock - green and 9 to 12 o'clock - yellow. The Specimen is serially sectioned and submitted entirely for frozen section diagnosis in one cassette. DARLENE/ 08/13/2023 TC:0 CPT: 22840,20766
--- NOTE | 2023-08-13 08:15 | DCINST_ITS ---
Discharge Instructions Dressing / Incision Additional Dressing/Incision Instructions:: Keep your head elevated (recliner position) for the next 2-3 nights to prevent swelling and bruising. Keep the Steri-Strips dry and in place until seen in the office. Take the oral antibiotic (Keflex) 2 times a day until finished. Follow Up Care Please Follow Up With: Vera Deleon MD When: In 1 to 2 weeks Test Results: Test results from this visit will be discussed in further detail at your follow- up appointment, if applicable. Discharge Plan Admission Attending Provider: Vera Deleon Primary Care Provider: Giovany Whittington Discharge Orders/Prescriptions Prescriptions: No Action warfarin 7.5 mg tablet 7 mg PO DAILY Rx Instructions: takes 7mg daily, 8mg on fridays pravastatin 40 mg tablet 40 mg PO DAILY losartan 25 mg tablet 25 mg PO DAILY norethindrone (contraceptive) 0.35 mg tablet 0.35 mg PO DAILY magnesium hydroxide 400 mg (170 mg magnesium) tablet,chewable PO potassium chloride 10 mEq tablet extended release 10 meq PO DAILY diltiazem HCl 60 mg capsule,extended release 12 hr 60 mg PO DAILY clonidine HCl 0.1 mg tablet 0.1 mg PO DAILY Referrals / Follow Up: Giovany Whittington MD [Primary Care Provider] - Disposition Disposition (needs filled in before D/C Order can be placed): Home, Self Care
--- NOTE | 2023-08-13 08:17 | OP.PCM_ITS ---
Problems Associated Problem List Diagnoses (1) Basal cell carcinoma (BCC) of forehead: Report of Operation Date of Procedure: 08/13/23 Pre-Operative Diagnosis: Biopsy-proven BCC of forehead Post-Operative Diagnosis: Same Surgery/Procedure Performed:: Excision BCC forehead with frozen section (1.5 cm) with intermediate closure Surgeon: Vera Deleon Type of Anesthesia: Local Specimen's removed: BCC forehead Estimated Blood Loss (mL): Minimal Description of Procedure: The patient presents with a biopsy-proven BCC of her left forehead. The deep margin had been positive for residual malignancy. She presents for reexcision to ensure clear margins. The patient is brought to the operating room and placed on the operating room table in the supine position. The face is prepped and draped in the usual sterile fashion. We initially began with demarcating an adequate margin around the grossly positive site. 1% lidocaine with epinephrine buffered with sodium bicarb is then injected in the periphery of this area. Following an adequate amount of time to allow for the effectiveness of the medication, an elliptical incision is made around the site down to fascia. Hemostasis is controlled with cautery. While maintaining orientation of the specimen, it is sent to pathology to check the margins. Frozen section demonstrates clear margins and therefore the wound is closed. 5- 0 Monocryl sutures used to approximate subcutaneous tissue and dermis. Skin edges were approximated with a running subcuticular Monocryl suture. Further refinement the closure was done with a 5-0 fast-absorbing gut. Dermabond and Steri-Strips were placed on the site. She tolerated the procedure well was taken to the recovery area in an awake and stable condition. Needle and sponge counts are correct. Complications None Admit VTE Documentation VTE Mechan Device Prophylaxis: None Reason prophylaxis not ordered:: Treatment Not Indicated
--- NOTE | 2023-08-13 08:21 | DCINST_ITS ---
Discharge Instructions Dressing / Incision Additional Dressing/Incision Instructions:: Keep your head elevated (recliner position) for the next 2-3 nights to prevent swelling and bruising. Keep the Steri-Strips dry and in place until seen in the office. Take the oral antibiotic (Keflex) 2 times a day until finished. Follow Up Care Please Follow Up With: Vera Deleon MD Test Results: Test results from this visit will be discussed in further detail at your follow- up appointment, if applicable. Discharge Plan Admission Attending Provider: Vera Deleon Primary Care Provider: Giovany Whittington Discharge Orders/Prescriptions Prescriptions: New cephalexin 500 mg capsule 500 mg PO BID Qty: 10 0RF No Action warfarin 7.5 mg tablet 7 mg PO DAILY Rx Instructions: takes 7mg daily, 8mg on fridays pravastatin 40 mg tablet 40 mg PO DAILY losartan 25 mg tablet 25 mg PO DAILY norethindrone (contraceptive) 0.35 mg tablet 0.35 mg PO DAILY magnesium hydroxide 400 mg (170 mg magnesium) tablet,chewable PO potassium chloride 10 mEq tablet extended release 10 meq PO DAILY diltiazem HCl 60 mg capsule,extended release 12 hr 60 mg PO DAILY clonidine HCl 0.1 mg tablet 0.1 mg PO DAILY Referrals / Follow Up: Giovany Whittington MD [Primary Care Provider] - Disposition Disposition (needs filled in before D/C Order can be placed): Home, Self Care
[2023-08-13 08:38] VITALS: BP 91/45; BP 95/44; PULSE 62; RESP 14; TEMP 36.9; O2SAT 97
== END 2023-08-13 08:40 | disposition home or self-care (01) ==
LOC: SDC 05:54 → AC 05:55
PROVIDERS: PCP Family Medicine; Referring Provider Plastic Surgery; Visit Provider Plastic Surgery
PROC: (CPT 11642; principal; 2023-08-13 07:20)
DX: C44.319 Basal cell carcinoma of skin of other parts of face (principal); L57.8 Other skin changes due to chronic exposure to nonionizing radiation; I10 Essential (primary) hypertension; E78.00 Pure hypercholesterolemia, unspecified; Z79.01 Long term (current) use of anticoagulants; Z79.899 Other long term (current) drug therapy; Z87.2 Personal history of diseases of the skin and subcutaneous tissue
CPT/HCPCS: 11642; 12051; 88305; 88331

== ENCOUNTER → 2023-12-07 | Outpatient (CLI) | payer OTHER, SELFPAY ==
[2023-12-07 15:30] LABS: International Normalized Ratio 2.5; Prothrombin Time (Protime)PT. 26.6 SECONDS (11.7-14.9)
== END | disposition home or self-care (01) ==
LOC: MFPLAB 14:01
PROVIDERS: PCP Family Medicine; Visit Provider Family Medicine
DX: D68.2 Hereditary deficiency of other clotting factors (principal)
CPT/HCPCS: 36415; 85610

== ENCOUNTER 2024-02-08 13:24 | Outpatient (RCR) | payer OTHER, SELFPAY ==
[2024-02-08 15:32] LABS: International Normalized Ratio 2.3; Prothrombin Time (Protime)PT. 24.9 SECONDS (11.7-14.9)
== END 2024-02-08 18:00 | disposition home or self-care (01) ==
LOC: MTLAB 13:24
PROVIDERS: PCP Family Medicine; Referring Provider Family Medicine; Visit Provider Family Medicine
DX: D68.2 Hereditary deficiency of other clotting factors (principal)
CPT/HCPCS: 36415; 85610

== ENCOUNTER 2024-05-04 11:25 | Outpatient (CLI) | payer OTHER, SELFPAY ==
[2024-05-04 16:10] LABS: International Normalized Ratio 2.9; Prothrombin Time (Protime)PT. 30.1 SECONDS (11.7-14.9)
== END 2024-05-04 23:59 | disposition home or self-care (01) ==
LOC: MFPLAB 11:25
PROVIDERS: PCP Family Medicine; Referring Provider Family Medicine; Visit Provider Family Medicine
DX: D68.2 Hereditary deficiency of other clotting factors (principal)
CPT/HCPCS: 36415; 85610

== ENCOUNTER → 2024-07-17 | Outpatient (CLI) | payer OTHER, SELFPAY ==
[2024-07-17 17:45] LABS: Hematocrit 40.7 % (37-47); Hemoglobin 12.9 g/dL (12.0-15.0); Mean Corp Hgb Conc 31.7 g/dL (32-36); Mean Corpuscular Hgb 29.7 pg (27.0-32.0); Mean Corpuscular Volume 93.6 fL (81-99); Mean Platelet Vol. 10.6 fl (6.2-12.0); Platelet Count 217 K/mm3 (150-450); RBC Distribution Width CV 12.9 % (11.6-14.6); RBC Distribution Width SD 44.8 fl (35.1-43.9); Red Blood Count 4.35 M/mm3 (4.2-5.4); White Blood Count 4.9 K/mm3 (4.4-11.0)
[2024-07-17 17:53] LABS: Microalbumin,Random Urine < 5.0 mg/L (NO RANGE EST.)
[2024-07-17 17:57] LABS: International Normalized Ratio 3.8; Prothrombin Time (Protime)PT. 38.2 SECONDS (11.7-14.9)
[2024-07-17 18:18] LABS: ALB/GLOB Ratio 1.1 RATIO (0.9-2.4); AST(SGOT) 24 U/L (15-37); Alanine Aminotransfer ALT/SGPT 35 U/L (13-56); Albumin, Serum 3.9 g/dL (3.2-5.0); Alkaline Phosphatase 41 U/L (45-117); Anion Gap 4 (5-15); BUN 24 mg/dL (7-18); BUN/Creat Ratio 34.3 RATIO (10-20); Calcium,Total 9.5 mg/dL (8.5-10.1); Chloride 106 mmol/L (98-107); EST Glomerular Filtration Rate 93 mL/min (>60); Est Glom Filt Rate - Afr Amer 113 mL/min (>60); Globulin 3.6 g/dL (2.2-4.2); Glucose 89 mg/dL (74-106); Potassium 4.2 mmol/L (3.5-5.1); Protein, Total 7.5 g/dL (6.4-8.2); Sodium Level 140 mmol/L (136-145)
== END | disposition home or self-care (01) ==
LOC: MFPLAB 15:15
PROVIDERS: PCP Family Medicine; Referring Provider Family Medicine; Visit Provider Family Medicine
DX: D68.2 Hereditary deficiency of other clotting factors (principal); I10 Essential (primary) hypertension; N95.1 Menopausal and female climacteric states
CPT/HCPCS: 36415; 80053; 82043; 82570; 85027; 85610

== ENCOUNTER → 2024-07-24 | Outpatient (CLI) | payer OTHER, SELFPAY ==
[2024-07-24 16:19] LABS: Prothrombin Time (Protime)PT. 31.9 SECONDS (11.7-14.9)
== END | disposition home or self-care (01) ==
LOC: MFPLAB 11:41
PROVIDERS: PCP Family Medicine; Referring Provider Family Medicine; Visit Provider Family Medicine
DX: Z79.01 Long term (current) use of anticoagulants (principal)
CPT/HCPCS: 36415; 85610

== ENCOUNTER → 2024-08-03 | Outpatient (CLI) | payer OTHER, SELFPAY ==
--- NOTE | 2024-08-03 13:36 | BI_ITS ---
PROCEDURE: SCRN MAMM (CAD)W/LENORA BILAT REASON FOR EXAM: F, Age 53 y/o , SCFREENING. No family history. TECHNIQUE: Bilateral screening digital breast tomosynthesis with 2D and 3D images. Computer aided detection. COMPARISON: Prior exam(s) dating back to December 16, 2022. FINDINGS: The breasts are heterogeneously dense which may obscure small masses. Stable examination. No suspicious masses, areas of developing architectural distortion, or suspicious calcifications. BI/SCRN MAMM (CAD)W/LENORA BILAT IMPRESSION: BI-RADS 1: NEGATIVE. RECOMMEND ANNUAL MAMMOGRAPHIC SCREENING. Follow-up code: Routine Follow-up The patient will be notified of the results by letter. Reading Location: [id number]
--- NOTE | 2024-08-03 13:36 | BD_ITS ---
PROCEDURE: DEXA BONE DENSITY STUDY REASON FOR EXAM: F, age 53 y/o . Postmenopausal. TECHNIQUE: DEXA scan of the lumbar spine and both hips. COMPARISON: None. FINDINGS: Lumbar Spine (L1-L4): g/cm2 (0.893)/T-score (-1.4)/Z-score (-0.5) findings are suggestive of osteopenia with a low fracture risk. Left Femur Total: g/cm2 (0.931)/T-score (-0.1)/Z-score (0.5) Left Femoral Neck: g/cm2 (0.734)/T-score (-1.0)/Z-score (-0.1) Right Femur Total: g/cm2 (0.843)/T-score (-0.8)/Z-score (-0.2) Right Femoral Neck: g/cm2 (0.696)/T-score (-1.4)/Z-score (-0.5) BD/Dexa Bone Density Study IMPRESSION: The patient is considered osteopenic as outlined below according to [employer] (WHO) criteria with a low fracture risk. Reading Location: [facility]
== END | disposition home or self-care (01) ==
LOC: OPBD 13:14
PROVIDERS: PCP Family Medicine; Referring Provider Family Medicine; Visit Provider Family Medicine
DX: Z12.31 Encounter for screening mammogram for malignant neoplasm of breast (principal); M85.88 Other specified disorders of bone density and structure, other site
CPT/HCPCS: 77063; 77067; 77080

== ENCOUNTER → 2024-08-09 | Outpatient (CLI) | payer OTHER, SELFPAY ==
[2024-08-09 15:17] LABS: International Normalized Ratio 2.3; Prothrombin Time (Protime)PT. 25.6 SECONDS (11.7-14.9)
== END | disposition home or self-care (01) ==
LOC: MFPLAB 10:58
PROVIDERS: PCP Family Medicine; Referring Provider Family Medicine; Visit Provider Family Medicine
DX: Z79.01 Long term (current) use of anticoagulants (principal)
CPT/HCPCS: 36415; 85610

== ENCOUNTER 2024-10-18 12:07 | Outpatient (CLI) | payer OTHER, SELFPAY ==
[2024-10-18 16:12] LABS: International Normalized Ratio 1.8; Prothrombin Time (Protime)PT. 21.5 SECONDS (11.7-14.9)
== END 2024-10-18 23:59 | disposition home or self-care (01) ==
LOC: MFPLAB 12:08
PROVIDERS: PCP Family Medicine; Referring Provider Family Medicine; Visit Provider Family Medicine
DX: Z79.01 Long term (current) use of anticoagulants (principal)
CPT/HCPCS: 36415; 85610

== ENCOUNTER 2024-11-21 10:41 | Outpatient (RCR) | payer OTHER, SELFPAY ==
[2024-11-21 13:17] LABS: Prothrombin Time (Protime)PT. 20.5 SECONDS (11.7-14.9)
== END 2024-12-21 18:00 | disposition home or self-care (01) ==
LOC: MTLAB 10:41
PROVIDERS: PCP Family Medicine; Referring Provider Family Medicine; Visit Provider Family Medicine
DX: Z79.01 Long term (current) use of anticoagulants (principal)
CPT/HCPCS: 36415; 85610

== ENCOUNTER → 2024-12-04 | Outpatient (CLI) | payer OTHER, SELFPAY ==
[2024-12-04 12:37] LABS: Prothrombin Time (Protime)PT. 21.9 SECONDS (11.7-14.9)
--- OUTSIDE RECORDS SUMMARY | 2024-12-04 21:44 | XMS RPT_ITS | CCD ---
Author Organization [facility] CliniS[facility]x Care Team Providers Care Communications Department Chair Name Role Phone Dr. Giovany Whittington Primary Care Provider Dr. Giovany Whittington Referring Provider Dr. Vera Deleon Attending Provider [phone] Vera Deleon Referring Provider [phone] Vera Deleon Other Provider [phone]([facility])[phone] Pk WATKINS, Dr. Adair Primary Care Provider Pk WATKINS, Dr. Adair Attending Provider [phone] Giovany Whittington MD Referring Provider [phone] Pk WATKINS, Dr. Adair Primary Care Provider Pk WATKINS, Dr. Adair Attending Provider Pk WATKINS, Dr. Adair Referring Provider [phone] Pk WATKINS, Dr. Adair Primary Care Provider Pk WATKINS, Dr. Adair Attending Provider [phone] Pk WATKINS, Dr. Adair Referring Provider [phone] WhittingtonGiovany Primary Care Unavailable Whittington, Giovany Attending Unavailable Whittington, Giovany Referring Unavailable Whittington, Giovany Primary Care Unavailable Whittington, Giovany Attending Unavailable Whittington, Giovany Referring Unavailable Whittington, Giovany Referring Unavailable Whittington, Giovany Primary Care Unavailable Whittington, Giovany Attending Unavailable Whittington, Giovany Attending Unavailable Whittington, Giovany Primary Care Unavailable Whittington, Giovany Referring Unavailable Whittington, Giovany Primary Care Unavailable Whittington, Giovany Attending Unavailable Whittington, Giovany Referring Unavailable Whittington, Giovany Primary Care Unavailable Whittington, Giovany Attending Unavailable Whittington, Giovany Primary Care Unavailable Whittington, Giovany Attending Unavailable Whittington, Giovany Referring Unavailable Whittington, Giovany Referring Unavailable Whittington, Giovany Primary Care Unavailable Giovany Whittington Attending Unavailable Giovany Whittington Referring Unavailable Giovany Whittington Primary Care Unavailable Giovany Whittington Attending Unavailable Giovany Whittington Primary Care Unavailable Giovany Whittington Attending Unavailable Giovany Whittington Referring Unavailable Medications Current Medications Medication Drug Class(es) Dates Sig (Normalized) Sig (Original) cloNIDine hydrochloride 0.1 mg oral tablet (6 sources) Central alpha-2 Adrenergic Agonist Start: 07-27-2023 take 1 tablet by mouth once daily Clonidine Hcl 0.1 mg tablet Active 0.1 mg PO DAILY July 27, 2023 1:00am 12 hr dilTIAZem hydrochloride 60 mg extended release oral capsule (6 sources) Calcium Channel Colby Start: 07-27-2023 take 1 capsule by mouth once daily Diltiazem Hcl 60 mg capsule,extended release 12 hr Active 60 mg PO DAILY July 27, 2023 1:00am losartan potassium 25 mg oral tablet (6 sources) Angiotensin 2 Receptor Colby Start: 07-27-2023 take 1 tablet by mouth once daily Losartan 25 mg tablet Active 25 mg PO DAILY July 27, 2023 1:00am magnesium hydroxide 400 mg chewable tablet (6 sources) Start: 07-27-2023 Magnesium Hydroxide 400 mg (170 mg magnesium) tablet,chewable Active mg PO July 27, 2023 1:00am norethindrone 0.35 mg oral tablet (6 sources) Start: 07-27-2023 take 1 tablet by mouth once daily Norethindrone (Contraceptive) 0.35 mg tablet Active 0.35 mg PO DAILY July 27, 2023 1:00am potassium chloride 10 meq extended release oral tablet (6 sources) Start: 07-27-2023 take 1 tablet by mouth once daily Potassium Chloride 10 mEq tablet extended release Active 10 meq PO DAILY July 27, 2023 1:00am pravastatin sodium 40 mg oral tablet (6 sources) HMG-CoA Reductase Inhibitor Start: 07-27-2023 take 1 tablet by mouth once daily Pravastatin 40 mg tablet Active 40 mg PO DAILY July 27, 2023 1:00am warfarin sodium 7.5 mg oral tablet (19 sources) Vitamin K Antagonist Start: 07-27-2023 Warfarin Active 7 MG PO DAILY July 27, 2023 1:00am takes 7mg daily, 8mg on fridays Start: 04-30-2013 End: 07-27-2023 Warfarin 7.5 mg tablet Activ e 7 mg PO DAILY July 27, 2023 1:00am takes 7mg daily, 8mg on fridays Completed/Discontinued Medications Medication Drug Class(es) Dates Sig (Normalized) Sig (Original) amoxicillin 875 mg oral tablet (13 sources) Penicillin-class Antibacterial Start: 04-30-2013 End: 07-27-2023 take 1 tablet by mouth every twelve hours Amoxicillin 875 MG tablet Discontinued 875 mg PO Q12H April 30, 2013 1:00am July 27, 2023 3:14pm Bp Med (13 sources) Start: 04-30-2013 End: 07-27-2023 Bp Med Discontinued April 30, 2013 12:00am July 27, 2023 2:14pm Start: 04-30-2013 End: 07-27-2023 Bp Med Discontinued April 30, 2013 1:00am July 27, 2023 3:14pm Start: 04-30-2013 Bp Med Active April 30, 2013 12:00am Start: 04-30-2013 Bp Med Active April 30, 2013 1:00am cephalexin 500 mg oral capsule (6 sources) Cephalosporin Antibacterial Start: 08-13-2023 End: 08-24-2023 take 1 capsule by mouth twice daily Cephalexin 500 mg capsule Discontinued 500 mg PO TWICE A DAY August 13, 2023 12:00am August 24, 2023 9:56am Problems Active Problems Problem Classification Problem Date Documented Da te Episodic/Chronic Coagulation and hemorrhagic disorders (1 source) Hereditary deficiency of other clotting factors; Translations: [Hereditary deficiency of other clotting factors] Onset: 07-29-2024 Chronic Other aftercare (2 sources) assisted (current) use of anticoagulants; Translations: [technician terminal and repeater (current) use of anticoagulants] Onset: 11-17-2024 Episodic Other non-epithelial cancer of skin (8 sources) Basal cell carcinoma of forehead; Translations: [Basal cell carcinoma of skin of other parts of face] 07-27-2023 Episodic Past or Other Problems Problem Classification Problem Date Documented Da te Episodic/Chronic Other screening for suspected conditions (not mental disorders or infectious disease) (1 source) Encounter for screening mammogram for malignant neoplasm of breast; Translations: [Encounter for screening mammogram for malignant neoplasm of breast] Onset: 08-14-2024 Episodic Results Test Name Value Interpretation Reference Range Facility Prothrombin Time w/INRon INR Coag (PPP) [Relative time] 1.7 {INR} Normal [facility] Comment on above: Performed By: #### L 300.3900 #### [facility] [address] [place], [address] PT Coag (PPP) [Time] 20.5 s High 11.7-14.9 [facility] Comment on above: Performed By: #### L 300.3900 #### [facility] [address] [place], [address] International normalized rat io (INR) calculationOrdered By: Giovany Whittington on 10-18-2024 INR Coag (Bld) [Relative time] 1.8 {INR} [facility] Prothrombin Time w/INRon INR Coag (PPP) [Relative time] 1.8 {INR} Normal [facility] Comment on above: Performed By: #### L 300.3900 #### [facility] [address] [place], [address] PT Coag (PPP) [Time] 21.5 s High 11.7-14.9 [facility] Comment on above: Performed By: #### L 300.3900 #### [facility] [address] [place], [address] Prothrombin timeOrdered By: Giovany Whittington on 10-18-2024 PT Coag (PPP) [Time] 21.5 s High 11.7-14.9 [facility] International normalized rat io (INR) calculationOrdered By: Giovany Whittington on 08-09-2024 INR Coag (Bld) [Relative time] 2.3 {INR} [facility] Prothrombin Time w/INRon INR Coag (PPP) [Relative time] 2.3 {INR} Normal [facility] Comment on above: Order Comment: Order Date: 07/24/24 Order Info: 6301-6 - PT Performed By: #### L 300.3900 #### [facility] [address] [place], [address] Prothrombin timeOrdered By: Giovany Whittington on 08-09-2024 PT Coag (PPP) [Time] 25.6 s High 11.7-14.9 [facility] Comment on above: Order Comment: Order Date: 07/24/24 Order Info: 6301-6 - PT Performed By: #### L 300.3900 #### [facility] [address] [place], [place], [address] Bone density reportOrdered B y: Brayden Gallego on 08-03-2024 Study report Skeletal system DXA [facility] [address] [place], [place] [address] Dexa Bone Density Study MR#: [id number] Acct: [id number] Name: GAYLE SOTELO Rep #: [id number] : 1970 F 53 From: Jerrell Gallego MD PCP: Dr. Giovany Whittington MD Status: [facility] CLI Study:Dexa Bone Density Study Date of Exam: 08/03/24 Exam# [id number] Ordering Dr: Robbi Whittington MD PROCEDURE: DEXA BONE DENSITY STUDY REASON FOR EXAM: F, age 53 y/o . Postmenopausal. TECHNIQUE: DEXA scan of the lumbar spine and both hips. COMPARISON: None. FINDINGS: Lumbar Spine (L1-L4): g/cm2 (0.893)/T-score (-1.4)/Z-score (-0.5) findings are suggestive of osteopenia with a low fracture risk. Left Femur Total: g/cm2 (0.931)/T-score (-0.1)/Z-score (0.5) Left Femoral Neck: g/cm2 (0.734)/T-score (-1.0)/Z-score (-0.1) Right Femur Total: g/cm2 (0.843)/T-score (-0.8)/Z-score (-0.2) Right Femoral Neck: g/cm2 (0.696)/T-score (-1.4)/Z-score (-0.5) BD/Dexa Bone Density Study IMPRESSION: The patient is considered osteopenic as outlined below according to World Scottie Organization (WHO) criteria with a low fracture risk. Reading Location: [id number] CC: Dr. Giovany Whittington MD ~ Boat Finisher: Signed [facility] Breast imaging reportOrdered By: Brayden Gallego on 08-03-2024 Study report [facility] [address], [place] [address] SCRN MAMM (CAD)W/LENORA BILAT MR#: [id number] Acct: [id number] Name: GAYLE SOTELO Rep #: [id number] : 1970 F 53 From: Jerrell Gallego MD PCP: Dr. Giovany Whittington MD Status: REG CLI Study:SCRN MAMM (CAD)W/LENORA BILAT Date of Exa m: 08/03/24 Exam# [id number] Ordering Dr: Robbi Whittington MD PROCEDURE: SCRN MAMM (CAD)W/LENORA BILAT REASON FOR EXAM: F, Age 53 y/o , SCFREENING. No family history. TECHNIQUE: Bilateral screening digital breast tomosynthesis with 2D and 3D images. Computeraided detection. COMPARISON: Prior exam(s) dating back to December 16, 2022. FINDINGS: The breasts are heterogeneously dense which may obscure small masses. Stable examination. No suspicious masses, areas of developing architectural distortion, or suspicious calcifications. BI/SCRN MAMM (CAD)W/LENORA BILAT IMPRESSION: BI-RADS 1: NEGATIVE. RECOMMEND ANNUAL MAMMOGRAPHIC SCREENING. Follow-up code: Routine Follow-up The patient will be notified of the results by letter. Reading Location: [id number] CC: Dr. Giovany Whittington MD ~ Boat Finisher: Signed [facility] Dexa Bone Density Studyon Dexa Bone Density Study [facility] [address] [place] [address] Dexa Bone Density Study MR#: [id number] Acct: [id number] Name: GAYLE SOTELO Rep #: [id number] : 1970 F 53 From: Brayden castanon MD PCP: Dr. Giovany Whittington MD Status: REG CLI Study: Dexa Bone Density Study Date of Exam: 08/03/24 Exam# [id number] Ordering Dr: Giovany Whittington MD PROCEDURE: DEXA BONE DENSITY STUDY REASON FOR EXAM: F, age 53 y/o . Postmenopausal. TECHNIQUE: DEXA scan of the lumbar spine and both hips. COMPARISON: None. FINDINGS: Lumbar Spine (L1-L4): g/cm2 (0.893)/T-score (-1.4)/Z-score (-0.5) findings are suggestive of osteopenia with a low fracture risk. Left Femur Total: g/cm2 (0.931)/T-score (-0.1)/Z-score (0.5) Left Femoral Neck: g/cm2 (0.734)/T-score (-1.0)/Z-score (-0.1) Right Femur Total: g/cm2 (0.843)/T-score (-0.8)/Z-score (-0.2) Right Femoral Neck: g/cm2 (0.696)/T-score (-1.4)/Z-score (-0.5) BD/Dexa Bone Density Study IMPRESSION: The patient is considered osteopenic as outlined below according to World Scottie Organization (WHO) criteria with a low fracture risk. Reading Location: [id number] CC: Dr. Giovany Whittington MD Boat Finisher: Signed Normal [facility] SCRN MAMM (CAD)W/LENORA Madeline n 08-03-2024 SCRN MAMM (CAD)W/LENORA BILAT [facility] [address] [place], [place] [address] SCRN MAMM (CAD)W/LENORA BILAT MR#: [id number] Acct: [id number] Name: GAYLE SOTELO Rep #: [id number] : 1970 F 53 From: Brayden castanon MD PCP: Dr. Giovany Whittington MD Status: [facility] CLI Study: SCRN MAMM (CAD)W/LENORA BILAT Date of Exam: 07/22 08/15 Exam# [id number] Ordering Dr: Giovany Whittington MD PROCEDURE: SCRN MAMM (CAD)W/LENORA BILAT REASON FOR EXAM: F, Age 53 y/o , SCFREENING. No family history. TECHNIQUE: Bilateral screening digital breast tomosynthesis with 2D and 3D images. Computer aided detection. COMPARISON: Prior exam(s) dating back to December 16, 2022. FINDINGS: The breasts are heterogeneously dense which may obscure small masses. Stable examination. No suspicious masses, areas of developing architectural distortion, or suspicious calcifications. BI/SCRN MAMM (CAD)W/LENORA BILAT IMPRESSION: BI-RADS 1: NEGATIVE. RECOMMEND ANNUAL MAMMOGRAPHIC SCREENING. Follow-up code: Routine Follow-up The patient will be notified of the results by letter. Reading Location: [id number] CC: Dr. Giovany Whittington MD Boat Finisher: Signed Normal [facility] International normalized rat io (INR) calculationOrdered By: Giovany Whittington on 07-24-2024 INR Coag (Bld) [Relative time] 3.0 {INR} [facility] Prothrombin Time w/INRon INR Coag (PPP) [Relative time] 3.0 {INR} Normal [facility] Comment on above: Performed By: #### L 305.8424 #### [facility] [address] [place], [address] PT Coag (PPP) [Time] 31.9 s High 11.7-14.9 [facility] Comment on above: Performed By: #### L 006.1643 #### [facility] [address] [place], [place], [address] Prothrombin timeOrdered By: Giovany Whittington on 07-24-2024 PT Coag (PPP) [Time] 31.9 s High 11.7-14.9 [facility] Albumin to globulin ratioOrd ered By: Giovany Whittington on 07-17-2024 Albumin/Globulin [Mass ratio] 1.1 {ratio} 0.9-2.4 [facility] Bilirubin, totalOrdered By: Giovany Whittington on 07-17-2024 Bilirubin [Mass/Vol] 0.30 mg/dL 0.20-1.00 [facility] Comment on above: For patients on eltr ombopag therapy, use of Dimension [place] TBIL is not recommended. Blood urea nitrogen (BUN)/cr eatinine ratioOrdered By: Giovany Whittington on 07-17-2024 Urea nitrogen/Creatinine [Mass ratio] 34.3 mg/mg High 10-20 [facility] CBC-Complete Blood Cnt No Di ffon 07-17-2024 Erythrocyte distribution width (RBC) [Ratio] 12.9 % Normal 11.6-14.6 [facility] Comment on above: Order Comment: Order Date: 07/17/24 Order Info: [id number] - CBC Performed By: #### L 502.0250, L100.0500, L300.3900, L500.4050 #### [facility] [address] [place], [address] (439) Hematocrit (Bld) [Volume fraction] 40.7 % Normal 37-47 [facility] Comment on above: Order Comment: Order Date: 07/17/24 Order Info: [id number] - CBC Performed By: #### L 502.0250, L100.0500, L300.3900, L500.4050 #### [facility] [address] [place], [address] Hemoglobin (Bld) [Mass/Vol] 12.9 g/dL Normal 12.0-15.0 [facility] Comment on above: Order Comment: Order Date: 07/17/24 Order Info: [id number] - CBC Performed By: #### L 502.0250, L100.0500, L300.3900, L500.4050 #### [facility] [address] [place], [address] MCH (RBC) [Entitic mass] 29.7 pg Normal 27.0-32.0 [facility] Comment on above: Order Comment: Order Date: 07/17/24 Order Info: [id number] - CBC Performed By: #### L 502.0250, L100.0500, L300.3900, L500.4050 #### [facility] [address] [place], [address] MCHC (RBC) [Mass/Vol] 31.7 g/dL Low 32-36 [facility] Comment on above: Order Comment: Order Date: 07/17/24 Order Info: [id number] - CBC Performed By: #### L 502.0250, L100.0500, L300.3900, L500.4050 #### [facility] [address] [place], [address] MCV (RBC) [Entitic vol] 93.6 fL Normal 81-99 [facility] Comment on above: Order Comment: Order Date: 07/17/24 Order Info: [id number] - CBC Performed By: #### L 502.0250, L100.0500, L300.3900, L500.4050 #### [facility] [address] [place], [address] Platelet mean volume (Bld) [Entitic vol] 10.6 fL Normal 6.2-12.0 [facility] Comment on above: Order Comment: Order Date: 07/17/24 Order Info: [id number] - CBC Performed By: #### L 502.0250, L100.0500, L300.3900, L500.4050 #### [facility] [address] [place], [address] Platelets (Bld) [#/Vol] 217 10*3/uL Normal 150-450 [facility] Comment on above: Order Comment: Order Date: 07/17/24 Order Info: [id number] - CBC Performed By: #### L 502.0250, L100.0500, L300.3900, L500.4050 #### [facility] [address] [place], [address] RBC (Bld) [#/Vol] 4.35 10*6/uL Normal 4.2-5.4 [facility] Comment on above: Order Comment: Order Date: 07/17/24 Order Info: [id number] - CBC Performed By: #### L 502.0250, L100.0500, L300.3900, L500.4050 #### [facility] [address] [place], [address] RDW SD 44.8 fl High 35.1-43.9 [facility] Comment on above: Order Comment: Order Date: 07/17/24 Order Info: [id number] - CBC Performed By: #### L 502.0250, L100.0500, L300.3900, L500.4050 #### [facility] [address] [place], [address] WBC (Bld) [#/Vol] 4.9 10*3/uL Normal 4.4-11.0 [facility] Comment on above: Order Comment: Order Date: 07/17/24 Order Info: [id number] - CBC Performed By: #### L 502.0250, L100.0500, L300.3900, L500.4050 #### [facility] [address] [place], [address] Carbon dioxide measurementOr dered By: Giovany Whittington on 07-17-2024 CO2 [Moles/Vol] 30.0 mmol/L 21.0-32.0 [facility] Chloride measurementOrdered By: Giovany Whittington on 07-17-2024 Chloride [Moles/Vol] 106 mmol/L 98-107 [facility] Comprehensive Metabolic Prof ilon 07-17-2024 Albumin [Mass/Vol] 3.9 g/dL Normal 3.2-5.0 [facility] Comment on above: Order Comment: Order Date: 07/17/24 Order Info: 0786-1 - CMP Performed By: #### L 502.0250, L100.0500, L300.3900, L500.4050 #### [facility] [address] [place], [address] Albumin/Globulin [Mass ratio] 1.1 {ratio} Normal 0.9-2.4 [facility] Comment on above: Order Comment: Order Date: 07/17/24 Order Info: 0786-1 - CMP Performed By: #### L 502.0250, L100.0500, L300.3900, L500.4050 #### [facility] [address] [place], [address] ALK P 41 U/L Low 45-117 [facility] Comment on above: Order Comment: Order Date: 07/17/24 Order Info: 0786-1 - CMP Performed By: #### L 502.0250, L100.0500, L300.3900, L500.4050 #### [facility] [address] [place], [address] ALT [Catalytic activity/Vol] 35 U/L Normal 13-56 [facility] Comment on above: Order Comment: Order Date: 07/17/24 Order Info: 0786-1 - CMP Performed By: #### L 502.0250, L100.0500, L300.3900, L500.4050 #### [facility] [address] [place], [address] AST [Catalytic activity/Vol] 24 U/L Normal 15-37 [facility] Comment on above: Order Comment: Order Date: 07/17/24 Order Info: 0786-1 - CMP Performed By: #### L 502.0250, L100.0500, L300.3900, L500.4050 #### [facility] [address] [place], [address] Bilirubin [Mass/Vol] 0.30 mg/dL Normal 0.20-1.00 [facility] Comment on above: Order Comment: Order Date: 07/17/24 Order Info: 0786-1 - CMP Result Comment: For patients on eltrombopag therapy, use of Dimension [place] TBIL is not recommended. Performed By: #### L 502.0250, L100.0500, L300.3900, L500.4050 #### [facility] [address] [place], [address] BUN/CRE 34.3 RATIO High 10-20 [facility] Comment on above: Order Comment: Order Date: 07/17/24 Order Info: 0786-1 - CMP Performed By: #### L 502.0250, L100.0500, L300.3900, L500.4050 #### [facility] [address] [place], [address] CA,Total 9.5 mg/dL Normal 8.5-10.1 [facility] Comment on above: Order Comment: Order Date: 07/17/24 Order Info: 0786-1 - CMP Performed By: #### L 502.0250, L100.0500, L300.3900, L500.4050 #### [facility] [address] [place], [address] Chloride [Moles/Vol] 106 mmol/L Normal 98-107 [facility] Comment on above: Order Comment: Order Date: 07/17/24 Order Info: 0786-1 - CMP Performed By: #### L 502.0250, L100.0500, L300.3900, L500.4050 #### [facility] [address] [place], [address] CO2 [Moles/Vol] 30.0 mmol/L Normal 21.0-32.0 [facility] Comment on above: Order Comment: Order Date: 07/17/24 Order Info: 0786-1 - CMP Performed By: #### L 502.0250, L100.0500, L300.3900, L500.4050 #### [facility] [address] [place], [address] Creatinine [Mass/Vol] 0.70 mg/dL Normal 0.55-1.02 [facility] Comment on above: Order Comment: Order Date: 07/17/24 Order Info: 0786-1 - CMP Result Comment: The validity of the calculated GFR GFRAA in patients over 70 years has not been determined. Clinical correlation is essential. Performed By: #### L 502.0250, L100.0500, L300.3900, L500.4050 #### [facility] [address] [place], [address] EST GFR - AA 113 mL/min Normal >60 [facility] Comment on above: Order Comment: Order Date: 07/17/24 Order Info: 0786-1 - CMP Result Comment: Afri can [place] GFR Calc Performed By: #### L 502.0250, L100.0500, L300.3900, L500.4050 #### [facility] [address] [place], [address] GAP 4 Low 5-15 [facility] Comment on above: Order Comment: Order Date: 07/17/24 Order Info: 0786-1 - CMP Performed By: #### L 502.0250, L100.0500, L300.3900, L500.4050 #### [facility] [address] [place], [address] GFR/1.73 sq M.predicted among non-blacks MDRD (S/P/Bld) [Vol rate/Area] 93 mL/min/{1.73_m2} Normal >60 [facility] Comment on above: Order Comment: Order Date: 07/17/24 Order Info: 0786-1 - CMP Result Comment: Non- GFR Calc Performed By: #### L 502.0250, L100.0500, L300.3900, L500.4050 #### [facility] [address] [place], [address] Globulin (S) [Mass/Vol] 3.6 g/dL Normal 2.2-4.2 [facility] Comment on above: Order Comment: Order Date: 07/17/24 Order Info: 0786-1 - CMP Performed By: #### L 502.0250, L100.0500, L300.3900, L500.4050 #### [facility] [address] [place], [address] Glucose [Mass/Vol] 89 mg/dL Normal 74-106 [facility] Comment on above: Order Comment: Order Date: 07/17/24 Order Info: 0786-1 - CMP Performed By: #### L 502.0250, L100.0500, L300.3900, L500.4050 #### [facility] [address] [place], [address] Potassium [Moles/Vol] 4.2 mmol/L Normal 3.5-5.1 [facility] Comment on above: Order Comment: Order Date: 07/17/24 Order Info: 0786-1 - CMP Performed By: #### L 502.0250, L100.0500, L300.3900, L500.4050 #### [facility] [address] [place], [address] Sodium [Moles/Vol] 140 mmol/L Normal 136-145 [facility] Comment on above: Order Comment: Order Date: 07/17/24 Order Info: 0786-1 - CMP Performed By: #### L 502.0250, L100.0500, L300.3900, L500.4050 #### [facility] [address] [place], [place], [id number] T PROT 7.5 g/dL Normal 6.4-8.2 [facility] Comment on above: Order Comment: Order Date: 07/17/24 Order Info: 0786-1 - CMP Performed By: #### L 502.0250, L100.0500, L300.3900, L500.4050 #### [facility] [address] [place], [address] Urea nitrogen [Mass/Vol] 24 mg/dL High 7-18 [facility] Comment on above: Order Comment: Order Date: 07/17/24 Order Info: 0786-1 - CMP Performed By: #### L 502.0250, L100.0500, L300.3900, L500.4050 #### [facility] [address] [place], [id number] Erythrocyte distribution wid th ratioOrdered By: Giovany Whittington on 07-17-2024 Erythrocyte distribution width (RBC) [Ratio] 12.9 % 11.6-14.6 [facility] Erythrocyte distribution wid th standard deviationOrdered By: Giovany Whittington on 07-17-2024 Erythrocyte distribution width (RBC) [Entitic vol] 44.8 fL High 35.1-43.9 [facility] Erythrocyte distribution width (RBC) [Ratio] 44.8 fl High 35.1-43.9 [facility] Estimated glomerular filtrat ion rate (GFR) AmericanOrdered By: Giovany Whittington on 07-17-2024 Estimated GFR (MDRD) Amer 113 mL/min >60 [facility] Comment on above: GFR Calc Glomerular filtration rate ( GFR) estimationOrdered By: Giovany Whittington on 07-17-2024 Estimated GFR (MDRD) Non-Af Amer 93 mL/min >60 [facility] Comment on above: Non- GFR Calc GFR/1.73 sq M.predicted among non-blacks MDRD (S/P/Bld) [Vol rate/Area] 93 mL/min/{1.73_m2} >60 [facility] Comment on above: Non- GFR Calc Glucose measurementOrdered B y: Giovany Whittington on 07-17-2024 Glucose [Mass/Vol] 89 mg/dL 74-106 [facility] Hematocrit Auto (Bld) [Volum e fraction]Ordered By: Giovany Whittington on 07-17-2024 Hematocrit (Bld) [Volume fraction] 40.7 % 37-47 [facility] Hemoglobin measurementOrdere d By: Giovany Whittington on 07-17-2024 Hemoglobin (Bld) [Mass/Vol] 12.9 g/dL 12.0-15.0 [facility] International normalized rat io (INR) calculationOrdered By: Giovany Whittington on 07-17-2024 INR Coag (Bld) [Relative time] 3.8 {INR} [facility] - Chemistry and C hemistry - challengeOrdered By: Giovany Whittington on 07-17-2024 AST [Catalytic activity/Vol] 24 U/L 15-37 [facility] MCV (mean corpuscular volume ) determinationOrdered By: Giovany Whittington on 07-17-2024 MCV (RBC) [Entitic vol] 93.6 fL 81-99 [facility] Mean corpuscular hemoglobin (MCH) determinationOrdered By: Giovany Whittington on 07-17-2024 MCH (RBC) [Entitic mass] 29.7 pg 27.0-32.0 [facility] Mean corpuscular hemoglobin concentration (MCHC) determinationOrdered By: Giovany Whittington on 07-17-2024 MCHC (RBC) [Mass/Vol] 31.7 g/dL Low 32-36 [facility] Mean platelet volume determi nationOrdered By: Giovany Whittington on 07-17-2024 Platelet mean volume (Bld) [Entitic vol] 10.6 fL 6.2-12.0 [facility] Microalb:Creat Ratio,Random URon 07-17-2024 Creatinine [Mass/Vol] 60.90 mg/dL Normal NO RAN GE EST. [facility] Comment on above: Order Comment: Order Date: 07/17/24 Order Info: [id number] - MIACRE Performed By: #### L 502.0250, L100.0500, L300.3900, L500.4050 #### [facility] [address] [place], [address] MALB:CRE TNP Normal <30 mg/g CRE [facility] Comment on above: Order Comment: Order Date: 07/17/24 Order Info: [id number] - MIACRE Performed By: #### L 502.0250, L100.0500, L300.3900, L500.4050 #### [facility] [address] [place], [address] MICROALBUMIN,UR < 5.0 Normal NO RANGE EST. [facility] Comment on above: Order Comment: Order Date: 07/17/24 Order Info: [id number] - MIACRE Performed By: #### L 502.0250, L100.0500, L300.3900, L500.4050 #### [facility] [address] [place], [address] Platelet countOrdered By: Robbi Whittington on 07-17-2024 Platelets (Bld) [#/Vol] 217 10*3/uL 150-450 [facility] Potassium measurementOrdered By: Giovany Whittington on 07-17-2024 Potassium [Moles/Vol] 4.2 mmol/L 3.5-5.1 [facility] Prothrombin Time w/INRon INR Coag (PPP) [Relative time] 3.8 {INR} Normal [facility] Comment on above: Order Comment: Order Date: 07/17/24 Order Info: [id number] - PT Performed By: #### L 502.0250, L100.0500, L300.3900, L500.4050 #### [facility] [address] [place], [address] PT Coag (PPP) [Time] 38.2 s High 11.7-14.9 [facility] Comment on above: Order Comment: Order Date: 07/17/24 Order Info: [id number] - PT Performed By: #### L 502.0250, L100.0500, L300.1570, L500.4050 #### [facility] [address] [place], [address] Prothrombin timeOrdered By: Giovany Whittington on 07-17-2024 PT Coag (PPP) [Time] 38.2 s High 11.7-14.9 [facility] RBC Auto (Bld) [#/Vol]Ordere d By: Giovany Whittington on 07-17-2024 RBC (Bld) [#/Vol] 4.35 10*6/uL 4.2-5.4 [facility] Random urine microalbumin me asurementOrdered By: Giovany Whittington on 07-17-2024 Urine Random Microalbumin < 5.0 mg/L NO RANGE EST. [facility] Serum anion gap measurementO rdered By: Giovany Whittington on 07-17-2024 Anion gap [Moles/Vol] 4 mmol/L Low 5-15 [facility] Serum globulin measurementOr dered By: Giovany Whittington on 07-17-2024 Globulin (S) [Mass/Vol] 3.6 g/dL 2.2-4.2 [facility] Serum or plasma alanine gerber otransferase (ALT) measurementOrdered By: Giovany Whittington on 07-17-2024 ALT [Catalytic activity/Vol] 35 U/L 13-56 [facility] Serum or plasma albumin felix urement (mass/volume)Ordered By: Giovany Whittington on 07-17-2024 Albumin [Mass/Vol] 3.9 g/dL 3.2-5.0 [facility] Serum or plasma alkaline anna sphatase measurementOrdered By: Giovany Whittington on 07-17-2024 ALP [Catalytic activity/Vol] 41 U/L Low 45-117 [facility] Serum or plasma calcium felix urement (mass/volume)Ordered By: Giovany Whittington on 07-17-2024 Calcium [Mass/Vol] 9.5 mg/dL 8.5-10.1 [facility] Serum or plasma creatinine m easurement (mass/volume)Ordered By: Giovany Whittington on 07-17-2024 Creatinine [Mass/Vol] 0.70 mg/dL 0.55-1.02 [facility] Comment on above: The validity of the calculated GFR & GFRAA in patients over 70 years has not been determined. Clinical correlation is essential. Serum or plasma urea nitroge n measurement (mass/volume)Ordered By: Giovany Whittington on 07-17-2024 Urea nitrogen [Mass/Vol] 24 mg/dL High 7-18 [facility] Sodium levelOrdered By: Giovany Whittington on 07-17-2024 Sodium [Moles/Vol] 140 mmol/L 136-145 [facility] Total proteinOrdered By: Orly Whittington on 07-17-2024 Protein [Mass/Vol] 7.5 g/dL 6.4-8.2 [facility] Urine albumin/creatinine rat io for detection of microalbuminuriaOrdered By: Giovany Whittington on 07-17-2024 Urine Microalbumin/Creatinine Ratio TNP [facility] Comment on above: Test not performed Urine creatinine measurement (mass/volume)Ordered By: Giovany Whittington on 07-17-2024 Creatinine (U) [Mass/Vol] 60.90 mg/dL NO RANGE EST. [facility] White blood cell (WBC) count Ordered By: Giovany Whittington on 07-17-2024 WBC (Bld) [#/Vol] 4.9 10*3/uL 4.4-11.0 [facility] normalized rat io (INR) calculationOrdered By: Giovany Whittington on 05-04-2024 INR Coag (Bld) [Relative time] 2.9 {INR} [facility] Prothrombin Time w/INRon INR Coag (PPP) [Relative time] 2.9 {INR} Normal [facility] Comment on above: Performed By: #### L 300.3900 #### [facility] [address] [place], [place], [id number] PT Coag (PPP) [Time] 30.1 s High 11.7-14.9 [facility] Comment on above: Performed By: #### L 300.3900 #### [facility] [address] [place], [address] Prothrombin timeOrdered By: Giovany Whittington on 05-04-2024 PT Coag (PPP) [Time] 30.1 s High 11.7-14.9 [facility] Prothrombin Time w/INRon INR Coag (PPP) [Relative time] 2.3 {INR} Normal [facility] Comment on above: Performed By: #### L 300.3900 #### [facility] [address] [place], [address] PT Coag (PPP) [Time] 24.9 s High 11.7-14.9 [facility] Comment on above: Performed By: #### L 300.3900 #### [facility] [address] [place], [address] Prothrombin Time w/INRon INR Coag (PPP) [Relative time] 2.5 {INR} Normal [facility] Comment on above: Performed By: #### L 300.3900 #### [facility] [address] [place], [address] PT Coag (PPP) [Time] 26.6 s High 11.7-14.9 [facility] Comment on above: Performed By: #### L 300.3900 #### [facility] [address] [place], [address] Absolute lymphocyte countOrd ered By: Giovany Whittington on 07-20-2023 Lymphocytes Auto (Unsp spec) [#/Vol] 0.85 10*3/uL 0.83-4.51 [facility] Automated lymphocyte count a s percentage of total leukocytesOrdered By: Giovany Whittington on 07-20-2023 Lymphocytes/100 WBC Auto (Unsp spec) 21.2 % 19-41 [facility] Basophil percentageOrdered B y: Giovany Whittington on 07-20-2023 Basophils/100 WBC (Bld) 0.7 % 0-1 [facility] Bilirubin [Mass/Vol] 0.60 mg/dL 0.20-1.00 [facility] Comment on above: For patients on eltr ombopag therapy, use of Dimension [place] TBIL is not recommended. Chloride [Moles/Vol] 108 mmol/L 98-107 [facility] Cholesterol [Mass/Vol] 179 mg/dL <200 [facility] Comment on above: <200 mg/dL Desirable 200-240 mg/dL Borderline >240 mg/dL High Risk Eosinophils/100 WBC (Bld) 1.7 % 0-5 [facility] Glucose [Mass/Vol] 81 mg/dL 74-106 [facility] Hemoglobin (Bld) [Mass/Vol] 13.9 g/dL 12.0-15.0 [facility] Monocytes/100 WBC (Bld) 8.0 % 0-10 [facility] Neutrophils (Bld) [#/Vol] 2.7 10*3/uL 2.0-7.7 [facility] Neutrophils/100 WBC (Bld) 68.2 % 47-70 [facility] Potassium [Moles/Vol] 4.1 mmol/L 3.5-5.1 [facility] Protein [Mass/Vol] 7.3 g/dL 6.4-8.2 [facility] Sodium [Moles/Vol] 140 mmol/L 136-145 [facility] Triglyceride [Mass/Vol] 55 mg/dL <199 [facility] Comment on above: The drugs N-Acetylcy steine and Metamizole may falsely depress this assay.Serum Triglycerides Reference Interval Normal <150 mg/dL Borderline high 150 - 199 mg/dL High 200 - 499 mg/dL Very High > or = 500 mg/dL WBC (Bld) [#/Vol] 4.0 10*3/uL 4.4-11.0 [facility] Determination of erythrocyte mean corpuscular volume (MCV)Ordered By: Giovany Whittington on 07-20-2023 MCV (RBC) [Entitic vol] 92.9 fL 81-99 [facility] Erythrocyte distribution wid th ratioOrdered By: Giovany Whittington on 07-20-2023 Erythrocyte distribution width (RBC) [Ratio] 14.0 % 11.6-14.6 [facility] Erythrocyte distribution wid th standard deviationOrdered By: Giovany Whittington on 07-20-2023 Erythrocyte distribution width (RBC) [Entitic vol] 47.8 fL 35.1-43.9 [facility] Hematocrit Auto (Bld) [Volum e fraction]Ordered By: Giovany Whittington on 07-20-2023 Hematocrit (Bld) [Volume fraction] 43.0 % 37-47 [facility] Immature granulocytes/100 WB C Auto (Bld)Ordered By: Giovany Whittington on 07-20-2023 Immature granulocytes/100 WBC (Bld) 0.200 % 0.0-0.9 [facility] Comment on above: IG% - Immature Granu locytes (promyelocytes, myelocytes and metamyelocytes) > 1% indicates that a LEFT SHIFT is Present. Laboratory - Chemistry and C hemistry - challengeOrdered By: Giovany Whittington on 07-20-2023 Albumin/Globulin [Mass ratio] 1.1 {ratio} 0.9-2.4 [facility] ALP [Catalytic activity/Vol] 42 U/L 45-117 [facility] ALT [Catalytic activity/Vol] 61 U/L 13-56 [facility] Cholesterol in HDL [Mass/Vol] 42 mg/dL >40 [facility] Comment on above: The drugs N-Acetylcy steine and Metamizole may falsely depress this assay. Reference Range HDL <40 mg/dL Low HDL Cholesterol HDL >or= 60 mg/dL High HDL Cholesterol Cholesterol in LDL [Mass/Vol] 126 mg/dL 0-130 [facility] CO2 [Moles/Vol] 26.0 mmol/L 21.0-32.0 [facility] Ferritin [Mass/Vol] 122 ng/mL 8-252 [facility] Globulin (S) [Mass/Vol] 3.4 g/dL 2.2-4.2 [facility] Urea nitrogen/Creatinine [Mass ratio] 27.6 mg/mg 10-20 [facility] - CoagulationOrde red By: Giovany Whittington on 07-20-2023 INR Coag (Bld) [Relative time] 2.2 {INR} [facility] PT Coag (PPP) [Time] 24.2 s 11.7-14.9 [facility] - Hematology and Cell countsOrdered By: Giovany Whittington on 07-20-2023 MCH (RBC) [Entitic mass] 30.0 pg 27.0-32.0 [facility] MCHC (RBC) [Mass/Vol] 32.3 g/dL 32-36 [facility] Nucleated RBC/100 WBC (Bld) [Ratio] 0 % 0-5 [facility] Platelet mean volume (Bld) [Entitic vol] 10.4 fL 6.2-12.0 [facility] Platelets (Bld) [#/Vol] 231 10*3/uL 150-450 [facility] No Panel InformationOrdered By: Giovany Whittington on 07-20-2023 Urine Microalbumin/Creatinine Ratio TNP [facility] Comment on above: Test not performed Estimated GFR (MDRD) Amer 109 mL/min >60 [facility] Comment on above: GFR Calc Estimated GFR (MDRD) Non-Af Amer 90 mL/min >60 [facility] Comment on above: Non- GFR Calc VLDL Cholesterol 11 mg/dL 5-40 [facility] Qualitative QuantiFERON-TB g old in tube testOrdered By: Giovany Whittington on 07-20-2023 M. tuberculosis tuberculin stim IFN-g Ql (Bld) 0.03 IU/mL . [facility] RBC Auto (Bld) [#/Vol]Ordere d By: Giovany Whittington on 07-20-2023 RBC (Bld) [#/Vol] 4.63 10*6/uL 4.2-5.4 [facility] Serum or plasma calcium felix urement (mass/volume)Ordered By: Giovany Whittington on 07-20-2023 Calcium [Mass/Vol] 9.2 mg/dL 8.5-10.1 [facility] Serum or plasma creatinine m easurement (mass/volume)Ordered By: Giovany Whittington on 07-20-2023 Creatinine [Mass/Vol] 0.72 mg/dL 0.55-1.02 [facility] Comment on above: The validity of the calculated GFR & GFRAA in patients over 70 years has not been determined. Clinical correlation is essential. Serum or plasma urea nitroge n measurement (mass/volume)Ordered By: Giovany Whittington on 07-20-2023 Urea nitrogen [Mass/Vol] 20 mg/dL 7-18 [facility] Thin prep Papanicolaou smear with manual screeningOrdered By: Giovany Whittington on 07-20-2023 Thin prep Papanicolaou smear with manual screening < 5.0 mg/L NO RANGE EST. [facility] Thin prep Papanicolaou smear with manual screening 3.9 g/dL 3.2-5.0 [facility] Thin prep Papanicolaou smear with manual screening 31 U/L 15-37 [facility] Thin prep Papanicolaou smear with manual screening 6 5-15 [facility] Thin prep Papanicolaou smear with manual screening Comment . [facility] Comment on above: QuantiFERON-TB Gold Plus is a qualitative indirect test forM tuberculosis infection (including disease) and isintended for use in conjunction with risk assessment,radiography, and other medical and diagnostic evaluations.The QuantiFERON-TB Gold Plus result is determined bysubtracting the Nil value from either TB antigen (Ag)value. The Mitogen tube serves as a control for the test. Thin prep Papanicolaou smear with manual screening 0.01 IU/mL . [facility] Thin prep Papanicolaou smear with manual screening 0 IU/mL . [facility] Thin prep Papanicolaou smear with manual screening > 10.00 IU/mL . [facility] Thin prep Papanicolaou smear with manual screening Negative Negative [facility] Comment on above: No response to M tub erculosis antigens detected.Infection with M tuberculosis is unlikely, but high riskindividuals should be considered for additional testing(ATS/IDSA/CDC Clinical Practice Guidelines, 2017). Thereference range is an Antigen minus Nil result of <0.35IU/mL.The specimen received for QuantiFERON testing was incubatedby the ordering institution. Specific procedures outlinedin our Directory of Services and in the package insert forthe QuantiFERON Gold (In Tube) test must be followed toenable for proper stimulation of cells for the productionof interferon gamma. Chemiluminescence immunoassaymethodologyPerformed at: [facility] [id number] Director: Isra Pierre PhD, Phone: [phone] Urine creatinine measurement (mass/volume)Ordered By: Giovany Whittington on 07-20-2023 Creatinine (U) [Mass/Vol] mg/dL NO RANGE EST. [facility] INR in Blood by Coagulation assayOrdered By: Giovany Whittington on 04-22-2023 INR Coag (Bld) [Relative time] 2.1 {INR} [facility] - CoagulationOrde red By: Giovany Whittington on 04-22-2023 PT Coag (PPP) [Time] 23.8 s 11.7-14.9 [facility] INR in Blood by Coagulation assayOrdered By: Giovany Whittington on 12-02-2022 INR Coag (Bld) [Relative time] 1.9 {INR} [facility] - CoagulationOrde red By: Giovany Whittington on 12-02-2022 PT Coag (PPP) [Time] 21.7 s 11.7-14.9 [facility] INR in Blood by Coagulation assayOrdered By: Giovany Whittington on 11-06-2022 INR Coag (Bld) [Relative time] 1.8 {INR} [facility] - CoagulationOrde red By: Giovany Whittington on 11-06-2022 PT Coag (PPP) [Time] 20.9 s 11.7-14.9 [facility] Absolute lymphocyte countOrd ered By: Dr. Whittington on 07-09-2022 Lymphocytes Auto (Unsp spec) [#/Vol] 1.05 10*3/uL 0.83-4.51 [facility] Basophil percentageOrdered B y: Dr. Whittington on 07-09-2022 Basophils/100 WBC (Bld) 0.4 % 0-1 [facility] Bilirubin [Mass/Vol] 0.40 mg/dL 0.20-1.00 [facility] Comment on above: For patients on eltr ombopag therapy, use of Dimension [place] TBIL is not recommended. Chloride [Moles/Vol] 105 mmol/L 98-107 [facility] Cholesterol [Mass/Vol] 233 mg/dL <200 [facility] Comment on above: <200 mg/dL Desirable 200-240 mg/dL Borderline >240 mg/dL High Risk Eosinophils/100 WBC (Bld) 1.7 % 0-5 [facility] Glucose [Mass/Vol] 84 mg/dL 74-106 [facility] Neutrophils (Bld) [#/Vol] 3.3 10*3/uL 2.0-7.7 [facility] Neutrophils/100 WBC (Bld) 68.4 % 47-70 [facility] Potassium [Moles/Vol] 4.7 mmol/L 3.5-5.1 [facility] Protein [Mass/Vol] 7.0 g/dL 6.4-8.2 [facility] Sodium [Moles/Vol] 140 mmol/L 136-145 [facility] Triglyceride [Mass/Vol] 91 mg/dL <199 [facility] Comment on above: The drugs N-Acetylcy steine and Metamizole may falsely depress this assay.Serum Triglycerides Reference Interval Normal <150 mg/dL Borderline high 150 - 199 mg/dL High 200 - 499 mg/dL Very High > or = 500 mg/dL WBC (Bld) [#/Vol] 4.8 10*3/uL 4.4-11.0 [facility] Blood erythrocytes count (nu mber/volume)Ordered By: Dr. Whittington on 07-09-2022 RBC (Bld) [#/Vol] 4.85 10*6/uL 4.2-5.4 [facility] Blood hemoglobin measurement (mass/volume)Ordered By: Dr. Whittington on 07-09-2022 Hemoglobin (Bld) [Mass/Vol] 14.3 g/dL 12.0-15.0 [facility] Blood lymphocytes/100 leukoc ytesOrdered By: Dr. Whittington on 07-09-2022 Lymphocytes/100 WBC (Bld) 21.8 % 19-41 [facility] Blood monocytes/100 leukocyt esOrdered By: Dr. Whittington on 07-09-2022 Monocytes/100 WBC (Bld) 7.5 % 0-10 [facility] Blood platelet mean volumeOr dered By: Dr. Whittington on 07-09-2022 Platelet mean volume (Bld) [Entitic vol] 10.6 fL 6.2-12.0 [facility] Determination of erythrocyte mean corpuscular volume (MCV)Ordered By: Dr. Whittington on 07-09-2022 MCV (RBC) [Entitic vol] 94.0 fL 81-99 [facility] Hematocrit Auto (Bld) [Volum e fraction]Ordered By: Dr. Whittington on 07-09-2022 Hematocrit (Bld) [Volume fraction] 45.6 % 37-47 [facility] - Chemistry and C hemistry - challengeOrdered By: Dr. Whittington on 07-09-2022 ALP [Catalytic activity/Vol] 31 U/L 45-117 [facility] ALT [Catalytic activity/Vol] 24 U/L 13-56 [facility] CO2 [Moles/Vol] 28.0 mmol/L 21.0-32.0 [facility] Globulin (S) [Mass/Vol] 3.3 g/dL 2.2-4.2 [facility] Urea nitrogen/Creatinine [Mass ratio] 26.4 mg/mg 10-20 [facility] - Hematology and Cell countsOrdered By: Dr. Whittington on 07-09-2022 Erythrocyte distribution width (RBC) [Entitic vol] 49.5 fL 35.1-43.9 [facility] Erythrocyte distribution width (RBC) [Ratio] 14.3 % 11.6-14.6 [facility] Immature granulocytes/100 WBC (Bld) 0.200 % 0.0-0.9 [facility] Comment on above: IG% - Immature Granu locytes (promyelocytes, myelocytes and metamyelocytes) > 1% indicates that a LEFT SHIFT is Present. MCH (RBC) [Entitic mass] 29.5 pg 27.0-32.0 [facility] Nucleated RBC/100 WBC (Bld) [Ratio] 0 % 0-5 [facility] MCHC Auto (RBC) [Mass/Vol]Or dered By: Dr. Whittington on 07-09-2022 MCHC (RBC) [Mass/Vol] 31.4 g/dL 32-36 [facility] No Panel InformationOrdered By: Dr. Whittington on 07-09-2022 Estimated GFR (MDRD) Amer 117 mL/min >60 [facility] Comment on above: GFR Calc Estimated GFR (MDRD) Non-Af Amer 97 mL/min >60 [facility] Comment on above: Non- GFR Calc Thyroid Stimulating Hormone (TSH) 2.04 uIU/mL 0.358-3.74 [facility] Urine Microalbumin/Creatinine Ratio 6.7 mg/g CRE <30 [facility] Platelets bldOrdered By: Dr. Whittington on 07-09-2022 Platelets (Bld) [#/Vol] 243 10*3/uL 150-450 [facility] Serum or plasma albumin felix urement (mass/volume)Ordered By: Dr. Whittington on 07-09-2022 Albumin [Mass/Vol] 3.7 g/dL 3.2-5.0 [facility] Serum or plasma albumin/glob ulin mass ratioOrdered By: Dr. Whittington on 07-09-2022 Albumin/Globulin [Mass ratio] 1.1 {ratio} 0.9-2.4 [facility] Serum or plasma calcium felix urement (mass/volume)Ordered By: Dr. Whittington on 07-09-2022 Calcium [Mass/Vol] 8.9 mg/dL 8.5-10.1 [facility] Serum or plasma cholesterol in HDL measurement (mass/volume)Ordered By: Dr. Whittington on 07-09-2022 Cholesterol in HDL [Mass/Vol] 50 mg/dL >40 [facility] Comment on above: The drugs N-Acetylcy steine and Metamizole may falsely depress this assay. Reference Range HDL <40 mg/dL Low HDL Cholesterol HDL >or= 60 mg/dL High HDL Cholesterol Serum or plasma cholesterol in VLDL measurement (mass/volume)Ordered By: Dr. Whittington on 07-09-2022 Cholesterol in VLDL [Mass/Vol] 18 mg/dL 5-40 [facility] Serum or plasma creatinine m easurement (mass/volume)Ordered By: Dr. Whittington on 07-09-2022 Creatinine [Mass/Vol] 0.68 mg/dL 0.55-1.02 [facility] Comment on above: The validity of the calculated GFR & GFRAA in patients over 70 years has not been determined. Clinical correlation is essential. Serum or plasma low density lipoprotein (LDL) cholesterol measurement (mass/volume)Ordered By: Dr. Whittington on 07-09-2022 Cholesterol in LDL [Mass/Vol] 165 mg/dL 0-130 [facility] Serum or plasma urea nitroge n measurement (mass/volume)Ordered By: Dr. Whittington on 07-09-2022 Urea nitrogen [Mass/Vol] 18 mg/dL 7-18 [facility] Thin prep Papanicolaou smear with manual screeningOrdered By: Dr. Whittington on 07-09-2022 Thin prep Papanicolaou smear with manual screening 15 U/L 15-37 [facility] Thin prep Papanicolaou smear with manual screening 7 5-15 [facility] Thin prep Papanicolaou smear with manual screening 7.6 mg/L NO RANGE EST. [facility] Urine creatinine measurement (mass/volume)Ordered By: Dr. Whittington on 07-09-2022 Creatinine (U) [Mass/Vol] 113.00 mg/dL NO RANGE EST. [facility] Whole blood hemoglobin A1c/t otal hemoglobin ratio (mass fraction)Ordered By: Dr. Whittington on 07-09-2022 HbA1c (Bld) [Mass fraction] 5.4 % 3.8-5.6 [facility] Comment on above: Normal < 5.7 % Predi abetic 5.7 - 6.4 % Diabetic >or= 6.5 % Please note range changes. INR in Blood by Coagulation assayon 12-19-2021 INR Coag (Bld) [Relative time] 1.9 {INR} [facility] Work Phone: Laboratory - Coagulationon 0 12-19-2021 PT Coag (PPP) [Time] 21.8 s 11.7-14.9 [facility] Work Phone: Vital Signs Date Time Vital Sign Value Performing Clinician Yanet vigil 08-13-2023 08:38-0400 Body temperature 98.5 [degF] Dr. Giovany Whittington Work Phone: [facility] 08-13-2023 08:38-0400 Diastolic blood pressure 44 mm[Hg] Dr. Giovany Whittington Work Phone: [facility] 08-13-2023 08:38-0400 Heart rate 62 /min Dr. Giovany Whittington Work Phone: [facility] 08-13-2023 08:38-0400 Respiratory rate 14 /min Dr. Giovany Whittington Work Phone: [facility] 08-13-2023 08:38-0400 SaO2% (BldA) [Mass fraction] 97 % Dr. Giovany Whittington Work Phone: [facility] 08-13-2023 08:38-0400 Systolic blood pressure 95 mm[Hg] Dr. Giovany Whittington Work Phone: [facility] 08-13-2023 06:25-0400 Body height 162.[address] Giovany Whittington Work Phone: 0(242)965-128417 [place] [address] 08-13-2023 06:25-0400 Body mass index (BMI) [Ratio] 25 kg/m2 Dr. Giovany Whittington Work Phone: 7(738)[phone] [place] [address] 08-13-2023 06:25-0400 Body weight [address] Giovany Whittington Work Phone: 0(586)039-625424 [address] 07-27-2023 14:13-0500 Body mass index (BMI) [Ratio] 24.7 kg/m2 Dr. Giovany Whittington Work Phone: 7(124)065-172517 [place] [address] 07-27-2023 14:13-0500 Body temperature 98.1 [degF] Dr. Giovany Whittington Work Phone: 8(708)188-093524 [address] 07-27-2023 14:13-0500 Body weight 65.[address] Giovany Whittington Work Phone: 5(376)983-089024 [address] 07-27-2023 14:13-0500 Diastolic blood pressure 63 mm[Hg] Dr. Giovany Whittington Work Phone: 4(786)057-930317 [place] [address] 07-27-2023 14:13-0500 Heart rate 62 /min Dr. Giovany Whittington Work Phone: [facility] 07-27-2023 14:13-0500 Respiratory rate 16 /min Dr. Giovany Whittington Work Phone: 9(066)129-983517 [place] [address] 07-27-2023 14:13-0500 SaO2% (BldA) [Mass fraction] 98 % Dr. Giovany Whittington Work Phone: [facility] 07-27-2023 14:13-0500 Systolic blood pressure 104 mm[Hg] Dr. Giovany Whittington Work Phone: 4(133)657-952217 [place] [address] Encounters Encounter Date Encounter Type Care Provider Facility Start: 11-21-2024 ambulatory Giovany Whittington Facility:[facility] Start: 10-18-2024 End: 10-18-[address] Giovany Whittington MD -Laboratory [facility] Start: 10-18-2024 End: 10-18-[address] Giovany Whittington MD Work Phone: [facility] Work Phone: Start: 08-09-2024 End: 08-09-[address] Giovany Whittington MD Work Phone: [facility] Work Phone: Start: 08-09-2024 End: 08-09-[address] Giovany Whittington MD -Laboratory, [facility] Start: 08-09-2024 End: 08-09-2024 ambulatory Giovany Whittington Facility:[facility] Start: 08-03-2024 End: 08-03-[address] Giovany Whittington MD Work Phone: [facility] Work Phone: Start: 08-03-2024 End: 08-03-[address] Giovany Whittington MD -Outpatient Bone Densitometry Work Phone: Start: 08-03-2024 End: 08-03-2024 ambulatory Giovany Whittington Facility:[facility] Start: 07-24-2024 End: 07-24-[address] Giovany Whittington MD Work Phone: [facility] Work Phone: Start: 07-24-2024 End: 07-24-[address] Giovany Whittington MD -Laboratory, [facility] Start: 07-24-2024 End: 07-24-2024 ambulatory Giovany Whittington Facility:[facility] Start: 07-17-2024 End: 07-17-[address] Giovany Whittington MD Work Phone: [facility] Work Phone: Start: 07-17-2024 End: 07-17-[address] Giovany Whittington MD -Laboratory, [facility] Start: 07-17-2024 End: 07-17-2024 ambulatory Giovany Whittington Facility:[facility] Start: 05-04-2024 End: 05-04-[address] Giovany Whittington MD -Laboratory, [facility] Start: 05-04-2024 End: 05-04-2024 ambulatory Giovany Whittington Facility:[facility] Start: 02-22-2024 ambulatory Giovany Whittington Facility:[facility] Start: 02-08-2024 End: 02-08-2024 ambulatory Giovany Whittington Facility:[facility] Start: 12-07-2023 End: 12-07-2023 ambulatory Giovany Whittington Facility:[facility] Start: 08-13-2023 Non-patient / Non-visit Dr. Robbi Whittington Work Phone: [facility] Start: 08-13-2023 End: 08-13-2023 Admission to same day surgery center Dr[facility] Giovany Whittington Work Phone: [facility] Start: 08-13-2023 End: 08-13-[address] Giovany Whittington Work Phone: [facility] Work Phone: Start: 07-27-2023 End: 07-27-[address] Giovany Whittington Work Phone: [facility] Work Phone: Start: 07-20-2023 End: 07-20-2023 ambulatory [facility] Work Phone: Start: 07-20-2023 End: 07-20-2023 Patient encounter procedure [facility] Start: 04-22-2023 End: 04-22-2023 ambulatory [facility] Work Phone: Start: 04-22-2023 End: 04-22-2023 Patient encounter procedure [facility] Start: 12-16-2022 End: 12-16-2022 ambulatory [facility] Work Phone: Start: 12-16-2022 End: 12-16-2022 Patient encounter procedure [facility]-Outpatient Breast Imaging Work Phone: Start: 12-02-2022 End: 12-02-2022 ambulatory [facility] Work Phone: Start: 12-02-2022 End: 12-02-2022 Patient encounter procedure [facility] Start: 11-06-2022 End: 11-06-2022 Patient encounter procedure [facility] Start: 07-09-2022 End: 07-09-2022 ambulatory [facility] Work Phone: Start: 07-09-2022 End: 07-09-2022 Patient encounter procedure [facility] Start: 12-19-2021 End: 12-21-2021 Discharged Rec[facility]ring [facility] Start: 12-12-2021 End: 12-12-2021 Patient encounter procedure [facility]-Outpatient Breast Imaging Procedures Date Procedure Procedure Detail Performing Clinician Start: 08-03-2024 Dual energy X-ray absorptiometry Dr. Giovany Whittington MD Work Phone: Start: 08-03-2024 Screening mammography Pedro Whittington MD Work Phone: Start: 07-17-2024 Measurement of renal function Dr. Giovany Whittington MD Work Phone: Comment on above: GFR Calc Start: 07-17-[address] Giovany Whittington MD Work Phone: Start: 07-17-2024 Urine microalbumin/creatinine ratio measurement Dr. Giovany Whittington MD Work Phone: Comment on above: Test not performed Start: 08-13-[address] Giovany lozada Work Phone: Start: 12-16-2022 Screening mammography Start: 12-12-2021 Screening mammograph y of bilateral breasts Plan of Treatment Date Care Activity Detail Author Start: 08-13-2023 Patient discharge [facility] Patient referral [facility] Work Phone: Payers Date Payer Category Payer Self-pay [id number] 2023 Unknown [id number] 2013 Unknown [id number] Unknown [facility] [place] [address] [id number] Unknown [id number] 2.16.8 [id number] Unknown [id number] 2.16.8 [id number] Unknown [id number] 2.16.8 [id number] Unknown [id number] 2.16.8 [id number] Unknown [id number] 2.16.8 [id number] Unknown [id number] 2.16.8 [id number] Unknown [id number] 2.16.8 [id number] Unknown [id number] 2.16.8 [id number] Unknown [id number] 2.16.8 [id number] Unknown [id number] 2.16.8 [id number] Social History Date Type Detail Facility Start: 04-30-2013 End: 07-27-2023 Tobacco smoking status NHIS Unknown if ever smoked [facility] Start: 1970 Sex Assigned At Female W [facility] Start: 07-27-2023 End: 07-27-2023 Tobacco smoking status NHIS Never smoked tobacco (finding) [facility] Start: 07-29-2024 End: 08-17-2024 Sex Female (finding) [facility] Goals Date Patient Goal Desired Activity /State Mental Status Date Assessment Result Facility 08-13-2023 Cognitive function Voice/Name [facility] Work Phone: Procedure note 08-13-2023 Note Date & Type Note Facility 08-13-[address] [facility] Discharge summary Note Date & Type Note Facility Discharge summary Note Date/Time August 13, 2023 8:16am [facility] Medical Records Department [address] [place] [address] Instructions for Home/Discharge Instructions 08/13/23814 MR#: [id number] Acct: [id number] Name: GAYLE SOTELO Rep #:[id number] : 1970 52 From: Vera Deleon MD PCP: Dr. Giovany Whittington MD [place] [facility] [place]charge Instructions Dressing / Incision Additional Dressing/Incision Instructions:: Keep your head elevated (recliner position) for the next 2-3 nights to prevent swelling and bruising. Keep the Steri-Strips dry and in place until seen in the office. Take the oral antibiotic (Keflex) 2 times a day until finished. Follow Up Care Please Follow Up With: Vera Deleon MD When: In 1 to 2 weeks Test Results: Test results from this visit will be discussed in further detail at your follow-up appointment, if applicable. Discharge Plan Admission Attending Provider: Vera Deleon Primary Care Provider: Giovany Whittington Discharge Orders/Prescriptions Prescriptions: No Action warfarin 7.5 mg tablet 7 mg PO DAILY Rx Instructions: takes 7mg daily, 8mg on fridays pravastatin 40 mg tablet 40 mg PO DAILY losartan 25 mg tablet 25 mg PO DAILY norethindrone (contraceptive) 0.35 mg tablet 0.35 mg PO DAILY magnesium hydroxide 400 mg (170 mg magnesium) tablet,chewable PO potassium chloride 10 mEq tablet extended release 10 meq PO DAILY diltiazem HCl 60 mg capsule,extended release 12 hr 60 mg PO DAILY clonidine HCl 0.1 mg tablet 0.1 mg PO DAILY Referrals / Follow Up: Giovany Whittington MD [Primary Care Provider] - Disposition Disposition (needs filled in before D/C Order can be placed): Home, Self Care 08/13/23822<Electronically signed by Vera Deleon MD>Vera Deleon MD CC: Dr. Giovany Whittington MD ~ Signed [facility] Work Phone: Discharge summary Note Date & Type Note Facility Discharge summary Note Date/Time August 13, 2023 8:23am [facility] Medical Records Department [address] [place] [address] Instructions for Home/Discharge Instructions 08/13/23820 MR#: [id number] Acct: [id number] Name: GAYLE SOTELO Rep #:[id number] : 1970 52 From: Vera Deleon MD PCP: Dr. Giovany Whittington MD [place] [facility] [place]charge Instructions Dressing / Incision Additional Dressing/Incision Instructions:: Keep your head elevated (recliner position) for the next 2-3 nights to prevent swelling and bruising. Keep the Steri-Strips dry and in place until seen in the office. Take the oral antibiotic (Keflex) 2 times a day until finished. Follow Up Care Please Follow Up With: Vera Deleon MD Test Results: Test results from this visit will be discussed in further detail at your follow-up appointment, if applicable. Discharge Plan Admission Attending Provider: Vera Deleon Primary Care Provider: Giovany Whittington Discharge Orders/Prescriptions Prescriptions: New cephalexin 500 mg capsule 500 mg PO BID Qty: 10 0RF No Action warfarin 7.5 mg tablet 7 mg PO DAILY Rx Instructions: takes 7mg daily, 8mg on fridays pravastatin 40 mg tablet 40 mg PO DAILY losartan 25 mg tablet 25 mg PO DAILY norethindrone (contraceptive) 0.35 mg tablet 0.35 mg PO DAILY magnesium hydroxide 400 mg (170 mg magnesium) tablet,chewable PO potassium chloride 10 mEq tablet extended release 10 meq PO DAILY diltiazem HCl 60 mg capsule,extended release 12 hr 60 mg PO DAILY clonidine HCl 0.1 mg tablet 0.1 mg PO DAILY Referrals / Follow Up: Giovany Whittington MD [Primary Care Provider] - Disposition Disposition (needs filled in before D/C Order can be placed): Home, Self Care 08/13/23 0822<Electronically signed by Vera Deleon MD>Vera Deleon MD CC: Dr. Giovany Whittington MD ~ Signed [facility] Work Phone: Evaluation note Note Date & Type Note Facility Evaluation note No assessment information availa ble [facility] Work Phone: Evaluation note Note Date & Type Note Facility Evaluation note Diagnosis Onset Date Basal cell carcinoma (BCC) of forehead acute Basal cell carcinoma (BCC) of forehead acute [facility] Work Phone: History and physical note Note Date & Type Note Facility History and physical note Note Date/Time August 13, 2023 7:0 9am [facility] Medical Records Department [address] [place] [address] History & Physical Exam 08/13/23 0707 MR#: [id number] Acct: [id number] Name: GAYLE SOTELO Rep #:[id number] : 1970 52 From: Vera Deleon MD PCP: Dr. Giovany Whittington MD Status:[facility] Location: [place] [address] History and Physical Date of Admission: 08/13/23 Interim note: Pt examined and there are no changes to the exam of 07/27/23. Pt with hx of bx lesion forehead which was consistent with BCC with + deep margin. She presents for excision of site with FS evaluation of margins. Assessment & Plan Assessment/Plan (1) Basal cell carcinoma (BCC) of forehead: PLAN: Plan BCC forehead--for excision with FS 08/13/23 0709 <Electronically signed by Vera Deleon MD> Cosigner Signature (if applicable): CC: Dr. Giovany Whittington MD; Dr. Vera Deleon MD~ Signed [facility] Work Phone: Reason for referral (narrative) Note Date & Type Note Facility Reason for referral (narrative) No reason for referral information available [facility] Work Phone: Chief Complaint and Reason for Visit Chief Complaint SCREENING Chief Complaint SHAVE BX OF CARDENAS/NON HEALING LESION Chief Complaint SHAVE BX OF CARDENAS/NON HEALING LESION BUMP ON FOREHEAD FROM BIOPSY Reason for Visit Basal cell carcinoma (BCC) of forehead Basal cell carcinoma (BCC) of forehead Chief Complaint Admit Date SCREENING August 03, 2024 1:1 2pm Advance Directives No Advanced Directives Records Found Advance Directive Response Recorded Date/ Time Living Will No April 30 7:16pm Power of Manager [employer] No April 30, 2013 7:16pm Advance Directive Response Recorded Date/ Time Living Will No April 30 6:16pm Power of Manager [employer] No April 30, 2013 6:16pm Family History No Family History Records Found Relationship Condition Age at Onset Recorded Date/T talat father Diabetes mellitus Unknown Cardiac disease Unknown High blood cholesterol Unknown mother Hypertension Unknown Summary Purpose Additional Source Comments Goals (unrecognized section and content) Goals may be documented in a n alternate sectionGoals may be documented in an alternate sectionGoals may be documented in an alternate sectionGoals may be documented in an alternate sectionGoals may be documented in an alternate sectionGoals may be documented in an alternate sectionGoals may be documented in an alternate sectionGoals may be documented in an alternate sectionGoals may be documented in an alternate sectionGoals may be documented in an alternate sectionGoals may be documented in an alternate sectionGoals may be documented in an alternate section Care Teams (unrecognized sec tion and content) Team Status: Active Member Role Status Dates Dr. Giovany Whittington MD Family Provider Active Dr. Giovany Whittington MD Primary Care Provider Active Team Status: Inactive Member Role Status Dates Dr. Giovany Whittington MD Primary Care Provide r, Attending Provider, Referring Provider Active Team Status: Inactive Member Role Status Dates Dr. Giovany Whittington MD Primary Care Provider, Attending P rovider Active Team Status: Inactive Member Role Status Dates Dr. Giovany Whittington MD Primary Care Provider, Referring P rovider Active Dr. Vera Deleon MD Attending Provider Active Team Status: Active Member Role Status Dates Dr. Giovany Whittington MD Primary Care Provider Active Dr. Vera Deleon MD Attending Provid er, Referring Provider, Other Provider Active Team Status: Inactive Member Role Status Dates Dr. Giovany Whittington MD Primary Care Provider Active Dr. Vera Deleon MD Attending Provider, Referring Provider Active Team Status: Active Member Role Status Dates Dr. Giovany Whittington MD Primary Care Provider Active Team Status: Inactive Member Role Status Dates Dr. Giovany Whittington MD Primary Care Provider Active Start: May 04, 2024 End: May 04, 2024 Dr. Giovany Whittington MD Attending Provider Active St art: May 04, 2024 End: May 04, 2024 Dr. Giovany Whittington MD Referring Provider Active St art: May 04, 2024 End: May 04, 2024 Team Status: Inactive Member Role Status Dates Dr. Giovany Whittington MD Primary Care Provider Active Start: July 17, 2024 End: July 17, 2024 Dr. Giovany Whittington MD Attending Provider Active St art: July 17, 2024 End: July 17, 2024 Dr. Giovany Whittington MD Referring Provider Active St art: July 17, 2024 End: July 17, 2024 Team Status: Active Member Role Status Dates Dr. Giovany Whittington MD Primary Care Provider Active Start: July 24, 2024 Dr. Giovany Whittington MD Attending Provider Active St art: July 24, 2024 Dr. Giovany Whittington MD Referring Provider Active St art: July 24, 2024 Team Status: Inactive Member Role Status Dates Dr. Giovany Whittington MD Primary Care Provider Active Start: July 24, 2024 End: July 24, 2024 Dr. Giovany Whittington MD Attending Provider Active St art: July 24, 2024 End: July 24, 2024 Dr. Giovany Whittington MD Referring Provider Active St art: July 24, 2024 End: July 24, 2024 Team Status: Active Member Role Status Dates Dr. Giovany Whittington MD Primary Care Provider Active Start: August 03, 2024 Dr. Giovany Whittington MD Attending Provider Active St art: August 03, 2024 Dr. Giovany Whittington MD Referring Provider Active St art: August 03, 2024 Team Status: Inactive Member Role Status Dates Dr. Giovany Whittington MD Primary Care Provider Active Start: August 03, 2024 End: August 03, 2024 Dr. Giovany Whittington MD Attending Provider Active St art: August 03, 2024 End: August 03, 2024 Dr. Giovany Whittington MD Referring Provider Active St art: August 03, 2024 End: August 03, 2024 Team Status: Active Member Role Status Dates Dr. Giovany Whittington MD Primary Care Provider Active Start: August 09, 2024 Dr. Giovany Whittington MD Attending Provider Active St art: August 09, 2024 Dr. Giovany Whittington MD Referring Provider Active St art: August 09, 2024 Team Status: Inactive Member Role Status Dates Dr. Giovany Whittington MD Primary Care Provider Active Start: August 09, 2024 End: August 09, 2024 Dr. Giovany Whittington MD Attending Provider Active St art: August 09, 2024 End: August 09, 2024 Dr. Giovany Whittington MD Referring Provider Active St art: August 09, 2024 End: August 09, 2024 Team Status: Inactive Member Role Status Dates Dr. Giovany Whittington MD Primary Care Provider Active Start: October 18, 2024 End: October 18, 2024 Dr. Giovany Whittington MD Attending Provider Active St art: October 18, 2024 End: October 18, 2024 Dr. Giovany Whittington MD Referring Provider Active St art: October 18, 2024 End: October 18, 2024 INFORMATION SOURCE (unrecogn ized section and content) DATE CREATED AUTHOR 11/23/2024 [facility] FOR RECORDS PERTAINING TO PATIENTS WHO ARE OR HAVE BEEN ENROLLED IN A CHEMICAL DEPENDENCY/SUBSTANCEABUSE PROGRAM, SOME INFORMATION MAY BE OMITTED. This clinical summary was aggregated from multiple sources. Caution should be exercised in using it in the provision of clinical care. This summary normalizes information from multiple sources, and as a consequence, information in this document may materially change the coding, format and clinical context of patient data. In addition, data may be omitted in some cases. CLINICAL DECISIONS SHOULD BE BASED ON THE PRIMARY CLINICAL RECORDS. [employer] provides no warranty or guarantee of the accuracy or completeness of information in this document.
== END | disposition home or self-care (01) ==
LOC: MFPLAB 10:56
PROVIDERS: PCP Family Medicine; Referring Provider Family Medicine; Visit Provider Family Medicine
DX: Z79.01 Long term (current) use of anticoagulants (principal)
CPT/HCPCS: 36415; 85610

== ENCOUNTER → 2025-02-12 | Outpatient (CLI) | payer OTHER, SELFPAY ==
--- OUTSIDE RECORDS SUMMARY | 2025-02-12 11:55 | XMS RPT_ITS | CCD ---
Author Organization [facility] Care Team Providers Care Workforce Services Representative Name Role Phone Dr. Giovany Whittington Primary Care Provider Dr. Giovany Whittington Referring Provider Dr. Vera Deleon Attending Provider Dr. Vera Deleon Referring Provider Dr. Vera Deleon Other Provider Pk WATKINS, Dr. Adair Primary Care Provider [phone] Pk WATKINS, Dr. Adair Attending Provider [phone] Giovany Whittington MD Referring Provider [phone] Pk WATKINS, Dr. Adair Primary Care Provider Pk WATKINS, Dr. Adair Attending Provider [phone] Pk WATKINS, Dr. Adair Referring Provider [phone] Giovany Whittington MD Primary Care Provider Pk WATKINS, Dr. Adair Attending Provider [phone] Pk WATKINS, Dr. Adair Referring Provider [phone] Pk WATKINS, Dr. Adair Primary Care Provider Pk WATKINS, Dr. Adair Attending Provider [phone] Pk WATKINS, Dr. Adair Referring Provider [phone] Giovany Whittington Referring Unavailable Whittington Giovany Attending Unavailable Whittington, Giovany Primary Care Unavailable Whittington, Giovany Referring Unavailable Whittington, Giovany Attending Unavailable Whittington, Giovany Primary Care Unavailable Whittington, Giovany Referring Unavailable Whittington, Giovany Attending Unavailable Whittington, Giovany Primary Care Unavailable Whittington, Giovany Primary Care Unavailable Whittington, Giovany Referring Unavailable Whittington, Giovany Attending Unavailable Whittington, Giovany Primary Care Unavailable Whittington, Giovany Referring Unavailable Whittington, Giovany Attending Unavailable Whittington, Giovany Primary Care Unavailable Whittington, Giovany Referring Unavailable Whittington, Giovany Attending Unavailable Whittington, Giovany Attending Unavailable Whittington, Giovany Primary Care Unavailable Whittington, Giovany Referring Unavailable Whittington, Giovany Primary Care Unavailable Whittington, Giovany Referring Unavailable Whittington, Giovany Attending Unavailable Whittington, Giovany Referring Unavailable Whittington, Giovany Attending Unavailable Whittington, Giovany Primary Care Unavailable Whittington, Giovany Referring Unavailable Whittington, Giovany Attending Unavailable Whittington, Giovany Primary Care Unavailable Whittington, Giovany Referring Unavailable Whittington, Giovany Attending Unavailable Whittington, Giovany Primary Care Unavailable Medications Current Medications Medication Drug Class(es) Dates Sig (Normalized) Sig (Original) cloNIDine hydrochloride 0.1 mg oral tablet (8 sources) Central alpha-2 Adrenergic Agonist Start: 07-27-2023 take 1 tablet by mouth once daily Clonidine Hcl 0.1 mg tablet Active 0.1 mg PO DAILY July 27, 2023 1:00am 12 hr dilTIAZem hydrochloride 60 mg extended release oral capsule (8 sources) Calcium Channel Colby Start: 07-27-2023 take 1 capsule by mouth once daily Diltiazem Hcl 60 mg capsule,extended release 12 hr Active 60 mg PO DAILY July 27, 2023 1:00am losartan potassium 25 mg oral tablet (8 sources) Angiotensin 2 Receptor Colby Start: 07-27-2023 take 1 tablet by mouth once daily Losartan 25 mg tablet Active 25 mg PO DAILY July 27, 2023 1:00am magnesium hydroxide 400 mg chewable tablet (8 sources) Start: 07-27-2023 Magnesium Hydroxide 400 mg (170 mg magnesium) tablet,chewable Active mg PO July 27, 2023 1:00am norethindrone 0.35 mg oral tablet (8 sources) Start: 07-27-2023 take 1 tablet by mouth once daily Norethindrone (Contraceptive) 0.35 mg tablet Active 0.35 mg PO DAILY July 27, 2023 1:00am potassium chloride 10 meq extended release oral tablet (8 sources) Start: 07-27-2023 take 1 tablet by mouth once daily Potassium Chloride 10 mEq tablet extended release Active 10 meq PO DAILY July 27, 2023 1:00am pravastatin sodium 40 mg oral tablet (8 sources) HMG-CoA Reductase Inhibitor Start: 07-27-2023 take 1 tablet by mouth once daily Pravastatin 40 mg tablet Active 40 mg PO DAILY July 27, 2023 1:00am warfarin sodium 7.5 mg oral tablet (20 sources) Vitamin K Antagonist Start: 07-27-2023 Warfarin Active 7 MG PO DAILY July 27, 2023 1:00am takes 7mg daily, 8mg on fridays Start: 04-30-2013 End: 07-27-2023 Warfarin 7.5 mg tablet Activ e 7 mg PO DAILY July 27, 2023 1:00am takes 7mg daily, 8mg on fridays Completed/Discontinued Medications Medication Drug Class(es) Dates Sig (Normalized) Sig (Original) amoxicillin 875 mg oral tablet (15 sources) Penicillin-class Antibacterial Start: 04-30-2013 End: 07-27-2023 take 1 tablet by mouth every twelve hours Amoxicillin 875 MG tablet Discontinued 875 mg PO Q12H 10 0 April 30, 2013 1:00am July 27, 2023 3:14pm Bp Med (15 sources) Start: 04-30-2013 End: 07-27-2023 Bp Med Discontinued April 30, 2013 12:00am July 27, 2023 2:14pm Start: 04-30-2013 End: 07-27-2023 Bp Med Discontinued April 30, 2013 1:00am July 27, 2023 3:14pm Start: 04-30-2013 Bp Med Active April 30, 2013 12:00am Start: 04-30-2013 Bp Med Active April 30, 2013 1:00am cephalexin 500 mg oral capsule (8 sources) Cephalosporin Antibacterial Start: 08-13-2023 End: 08-24-2023 take 1 capsule by mouth twice daily Cephalexin 500 mg capsule Discontinued 500 mg PO TWICE A DAY 10 0 August 13, 2023 12:00am August 24, 2023 9:56am Problems Active Problems Problem Classification Problem Date Documented Da te Episodic/Chronic Coagulation and hemorrhagic disorders (1 source) Hereditary deficiency of other clotting factors; Translations: [Hereditary deficiency of other clotting factors] Onset: 07-29-2024 Chronic Other aftercare (1 source) care home (current) use of anticoagulants; Translations: [care home (current) use of anticoagulants] Onset: 12-22-2024 Episodic Other non-epithelial cancer of skin (10 sources) Basal cell carcinoma of forehead; Translations: [...] Test Name Value Interpretation Reference Range Facility International normalized rat io (INR) calculationOrdered By: Giovany Whittington on 12-04-2024 INR Coag (Bld) [Relative time] 1.9 {INR} [facility] Prothrombin Time w/INRon INR Coag (PPP) [Relative time] 1.9 {INR} Normal [facility] Comment on above: Performed By: #### L 300.3900 #### [facility] [address] [facility] [address] PT Coag (PPP) [Time] 21.9 s High 11.7-14.9 [facility] Comment on above: Performed By: #### L 300.3900 #### [facility] [address] [place], [address] Prothrombin timeOrdered By: Giovany Whittington on 12-04-2024 PT Coag (PPP) [Time] 21.9 s High 11.7-14.9 [facility] International normalized rat io (INR) calculationOrdered By: Giovany Whittington on 11-21-2024 INR Coag (Bld) [Relative time] 1.7 {INR} [facility] Prothrombin Time w/INRon INR Coag (PPP) [Relative time] 1.7 {INR} Normal [facility] Comment on above: Performed By: #### L 300.3900 #### [facility] [address] [facility] [address] PT Coag (PPP) [Time] 20.5 s High 11.7-14.9 [facility] Comment on above: Performed By: #### L 300.3900 #### [facility] [address] [facility] [address] Prothrombin timeOrdered By: Giovany Whittington on 11-21-2024 PT Coag (PPP) [Time] 20.5 s High 11.7-14.9 [facility] International normalized rat io (INR) calculationOrdered By: Giovany Whittington on 10-18-2024 INR Coag (Bld) [Relative time] 1.8 {INR} [facility] Prothrombin Time w/INRon INR Coag (PPP) [Relative time] 1.8 {INR} Normal [facility] Comment on above: Performed By: #### L 300.3900 #### [facility] [address] [place], [place], [id number] PT Coag (PPP) [Time] 21.5 s High 11.7-14.9 [facility] Comment on above: Performed By: #### L 300.3900 #### [facility] [address] [place], [place], [id number] Prothrombin timeOrdered By: Giovany Whittington on 10-18-2024 PT Coag (PPP) [Time] 21.5 s High 11.7-14.9 [facility] International normalized rat io (INR) calculationOrdered By: Giovany Whittington on 08-09-2024 INR Coag (Bld) [Relative time] 2.3 {INR} [facility] Prothrombin Time w/INRon INR Coag (PPP) [Relative time] 2.3 {INR} Normal [facility] Comment on above: Order Comment: Order Date: 07/24/24 Order Info: 6301-6 - PT Performed By: #### L 300.3900 #### [facility] [address] [place], [place], [id number] Prothrombin timeOrdered By: Giovany Whittington on 08-09-2024 PT Coag (PPP) [Time] 25.6 s High 11.7-14.9 [facility] Comment on above: Order Comment: Order Date: 07/24/24 Order Info: 6301-6 - PT Performed By: #### L 300.3900 #### [facility] [address] [place], [place], [address] Bone density reportOrdered B y: Brayden Gallego on 08-03-2024 Study report Skeletal system [facility] Services [address] [place], [place] [address] Dexa Bone Density Study MR#: [id number] Acct: [id number] Name: GAYLE SOTELO Rep #: [id number] : 1970 F 53 From: Jerrell Gallego MD PCP: Dr. Giovany Whittington MD Status: REG CLI Study:Dexa Bone Density Study Date of Exam: 08/03/24 Exam# [id number] Ordering Dr: Robbi Whittington MD PROCEDURE: DEXA [...] with a low fracture risk. Reading Location: [id number] CC: Dr. Giovany Whittington MD ~ Hospitalist Program Director: Signed [facility] Breast imaging reportOrdered By: Brayden Gallego on 08-03-2024 Study report [facility] Services [address] [place] [address] SCRN MAMM (CAD)W/LENORA BILAT MR#: [id number] Acct: [id number] Name: GAYLE SOTELO Rep #: [id number] : 1970 F 53 From: Jerrell Gallego MD PCP: Dr. Giovany Whittington MD Status: REG CLI Study:SCRN MAMM (CAD)W/LENORA BILAT Date of Exa m: 08/03/24 Exam# [id number] Ordering Dr: Robbi Whittington MD PROCEDURE: SCRN [...] of the results by letter. Reading Location: [id number] CC: Dr. Giovany Whittington MD ~ Hospitalist Program Director: Signed [facility] Dexa Bone Density Studyon Dexa Bone Density Study [facility] Imaging Services [address] [place], [place] [id number] Dexa Bone Density Study MR#: [id number] Acct: [id number] Name: GAYLE SOTELO Rep #: [id number] : 1970 F 53 From: Brayden castanon MD PCP: Dr. Giovany Whittington MD Status: REG CLI Study: Dexa Bone Density Study Date of Exam: 08/03/24 Exam# [id number] Ordering Dr: Giovany Whittington MD PROCEDURE: DEXA [...] with a low fracture risk. Reading Location: [facility] CC: Dr. Giovany Whittington MD Hospitalist Program Director: Signed Normal [facility] SCRN MAMM (CAD)W/LENORA BILATo n 08-03-2024 SCRN MAMM (CAD)W/LENORA BILAT [facility] Imaging Services [address] [place] [address] SCRN MAMM (CAD)W/LENORA BILAT MR#: [id number] Acct: [id number] Name: GAYLE SOTELO Rep #: [id number] : 1970 F 53 From: Brayden castanon MD PCP: Dr. Giovany Whittington MD Status: REG CLI Study: SCRN MAMM (CAD)W/LENORA BILAT Date of Exam: 07/22 08/15 Exam# [id number] Ordering Dr: Giovany Whittington MD PROCEDURE: SCRN [...] of the results by letter. Reading Location: [facility] CC: Dr. Giovany Whittington MD Hospitalist Program Director: Signed Normal [facility] International normalized rat io (INR) calculationOrdered By: Giovany Whittington on 07-24-2024 INR Coag (Bld) [Relative time] 3.0 {INR} [facility] Prothrombin Time w/INRon INR Coag (PPP) [Relative time] 3.0 {INR} Normal [facility] Comment on above: Performed By: #### L 300.3900 #### [facility] [address] [place], [place], [id number] PT Coag (PPP) [Time] 31.9 s High 11.7-14.9 [facility] Comment on above: Performed By: #### L [id number] #### [facility] [address] [place], [address] Prothrombin timeOrdered By: Giovany Whittington on 07-24-2024 PT Coag (PPP) [Time] 31.9 s High 11.7-14.9 [facility] Albumin to globulin ratioOrd ered By: Giovany Whittington on 07-17-2024 Albumin/Globulin [Mass ratio] 1.1 {ratio} 0.9-2.4 [facility] Bilirubin, totalOrdered By: Giovany Whittington on 07-17-2024 Bilirubin [Mass/Vol] 0.30 mg/dL 0.20-1.00 [facility] Comment on above: For patients on eltr ombopag therapy, use of Dimension [place] TBIL is not recommended. Blood urea nitrogen (BUN)/cr eatinine ratioOrdered By: Giovany Whittington on 07-17-2024 Urea nitrogen/Creatinine [Mass ratio] 34.3 mg/mg High 10-20 [facility] CBC-Complete Blood Cnt No Di ffon 07-17-2024 Erythrocyte distribution width (RBC) [Ratio] 12.9 % Normal 11.6-14.6 [facility] Comment on above: Order Comment: Order Date: 07/17/24 Order Info: [id number] - CBC Performed By: #### L 502.0250, L100.0500, L300.3900, L500.4050 #### [facility] [address] [place], [address] Hematocrit (Bld) [Volume fraction] 40.7 % Normal 37-47 [facility] Comment on above: Order Comment: Order Date: 07/17/24 Order Info: [id number] - CBC Performed By: #### L 502.0250, L100.0500, L300.3900, L500.4050 #### [facility] [address] [place], [address] Hemoglobin (Bld) [Mass/Vol] 12.9 g/dL Normal 12.0-15.0 [facility] Comment on above: Order Comment: Order Date: 07/17/24 Order Info: [id number] - CBC Performed By: #### L 502.0250, L100.0500, L300.3900, L500.4050 #### [facility] [address] [place], [address] MCH (RBC) [Entitic mass] 29.7 pg Normal 27.0-32.0 [facility] Comment on above: Order Comment: Order Date: 07/17/24 Order Info: [id number] - CBC Performed By: #### L 502.0250, L100.0500, L300.3900, L500.4050 #### [facility] [address] [place], [address] MCHC (RBC) [Mass/Vol] 31.7 g/dL Low 32-36 [facility] Comment on above: Order Comment: Order Date: 07/17/24 Order Info: [id number] - CBC Performed By: #### L 502.0250, L100.0500, L300.3900, L500.4050 #### [facility] [address] [place], [address] MCV (RBC) [Entitic vol] 93.6 fL Normal 81-99 [facility] Comment on above: Order Comment: Order Date: 07/17/24 Order Info: [id number] - CBC Performed By: #### L 502.0250, L100.0500, L300.3900, L500.4050 #### [facility] [address] [place], [address] Platelet mean volume (Bld) [Entitic vol] 10.6 fL Normal 6.2-12.0 [facility] Comment on above: Order Comment: Order Date: 07/17/24 Order Info: [id number] - CBC Performed By: #### L 502.0250, L100.0500, L300.3900, L500.4050 #### [facility] [address] [place], [address] Platelets (Bld) [#/Vol] 217 10*3/uL Normal 150-450 [facility] Comment on above: Order Comment: Order Date: 07/17/24 Order Info: [id number] - CBC Performed By: #### L 502.0250, L100.0500, L300.3900, L500.4050 #### [facility] [address] [place], [address] RBC (Bld) [#/Vol] 4.35 10*6/uL Normal 4.2-5.4 [facility] Comment on above: Order Comment: Order Date: 07/17/24 Order Info: [id number] - CBC Performed By: #### L 502.0250, L100.0500, L300.3900, L500.4050 #### [facility] [address] [place], [address] RDW SD 44.8 fl High 35.1-43.9 [facility] Comment on above: Order Comment: Order Date: 07/17/24 Order Info: [id number] - CBC Performed By: #### L 502.0250, L100.0500, L300.3900, L500.4050 #### [facility] [address] [place], [address] WBC (Bld) [#/Vol] 4.9 10*3/uL Normal 4.4-11.0 [facility] Comment on above: Order Comment: Order Date: 07/17/24 Order Info: [id number] - CBC Performed By: #### L 502.0250, L100.0500, L300.3900, L500.4050 #### [facility] [address] [place], [address] Carbon dioxide measurementOr dered By: Giovany Whittington on 07-17-2024 CO2 [Moles/Vol] 30.0 mmol/L 21.0-32.0 [facility] Chloride measurementOrdered By: Giovany Whittington on 07-17-2024 Chloride [Moles/Vol] 106 mmol/L 98-107 [facility] Comprehensive Metabolic Prof ilon 07-17-2024 Albumin [Mass/Vol] 3.9 g/dL Normal 3.2-5.0 [facility] Comment on above: Order Comment: Order Date: 07/17/24 Order Info: 0786-1 - CMP Performed By: #### L 502.0250, L100.0500, L300.3900, L500.4050 #### [facility] [address] [place], [address] Albumin/Globulin [Mass ratio] 1.1 {ratio} Normal 0.9-2.4 [facility] Comment on above: Order Comment: Order Date: 07/17/24 Order Info: 0786-1 - CMP Performed By: #### L 502.0250, L100.0500, L300.3900, L500.4050 #### [facility] [address] [place], [address] ALK P 41 U/L Low 45-117 [facility] Comment on above: Order Comment: Order Date: 07/17/24 Order Info: 0786-1 - CMP Performed By: #### L 502.0250, L100.0500, L300.3900, L500.4050 #### [facility] [address] [place], [address] ALT [Catalytic activity/Vol] 35 U/L Normal 13-56 [facility] Comment on above: Order Comment: Order Date: 07/17/24 Order Info: 0786-1 - CMP Performed By: #### L 502.0250, L100.0500, L300.3900, L500.4050 #### [facility] [address] [place], [address] AST [Catalytic activity/Vol] 24 U/L Normal 15-37 [facility] Comment on above: Order Comment: Order Date: 07/17/24 Order Info: 0786-1 - CMP Performed By: #### L 502.0250, L100.0500, L300.3900, L500.4050 #### [facility] [address] [place], [address] Bilirubin [Mass/Vol] 0.30 mg/dL Normal 0.20-1.00 [facility] Comment on above: Order Comment: Order Date: 07/17/24 Order Info: 0786-1 - CMP Result Comment: For patients on eltrombopag therapy, use of Dimension [place] TBIL is not recommended. Performed By: #### L 502.0250, L100.0500, L300.3900, L500.4050 #### [facility] [address] [place], [address] BUN/CRE 34.3 RATIO High 10-20 [facility] Comment on above: Order Comment: Order Date: 07/17/24 Order Info: 0786-1 - CMP Performed By: #### L 502.0250, L100.0500, L300.3900, L500.4050 #### [facility] [address] [place], [address] CA,Total 9.5 mg/dL Normal 8.5-10.1 [facility] Comment on above: Order Comment: Order Date: 07/17/24 Order Info: 0786-1 - CMP Performed By: #### L 502.0250, L100.0500, L300.3900, L500.4050 #### [facility] [address] [place], [address] Chloride [Moles/Vol] 106 mmol/L Normal 98-107 [facility] Comment on above: Order Comment: Order Date: 07/17/24 Order Info: 0786-1 - CMP Performed By: #### L 502.0250, L100.0500, L300.3900, L500.4050 #### [facility] [address] [place], [address] CO2 [Moles/Vol] 30.0 mmol/L Normal 21.0-32.0 [facility] Comment on above: Order Comment: Order Date: 07/17/24 Order Info: 0786-1 - CMP Performed By: #### L 502.0250, L100.0500, L300.3900, L500.4050 #### [facility] [address] [place], [address] Creatinine [Mass/Vol] 0.70 mg/dL Normal 0.55-1.02 [facility] Comment on above: Order Comment: Order Date: 07/17/24 Order Info: 0786-1 - [facility] Result Comment: The validity of the calculated GFR GFRAA in patients over 70 years has not been determined. Clinical correlation is essential. Performed By: #### L 502.0250, L100.0500, L300.3900, L500.4050 #### [facility] [address] [place], [address] EST GFR - AA 113 mL/min Normal >60 [facility] Comment on above: Order Comment: Order Date: 07/17/24 Order Info: 0786-1 - [facility] Result Comment: Afri can Taiwanese GFR Calc Performed By: #### L 502.0250, L100.0500, L300.3900, L500.4050 #### [facility] [address] [place], [address] GAP 4 Low 5-15 [facility] Comment on above: Order Comment: Order Date: 07/17/24 Order Info: 0786-1 - [facility] Performed By: #### L 502.0250, L100.0500, L300.3900, L500.4050 #### [facility] [address] [place], [address] GFR/1.73 sq M.predicted among non-blacks MDRD (S/P/Bld) [Vol rate/Area] 93 mL/min/{1.73_m2} Normal >60 [facility] Comment on above: Order Comment: Order Date: 07/17/24 Order Info: 0786-1 - [facility] Result Comment: Non- GFR Calc Performed By: #### L 502.0250, L100.0500, L300.3900, L500.4050 #### [facility] [address] [place], [address] Globulin (S) [Mass/Vol] 3.6 g/dL Normal 2.2-4.2 [facility] Comment on above: Order Comment: Order Date: 07/17/24 Order Info: 0786-1 - CMP Performed By: #### L 502.0250, L100.0500, L300.3900, L500.4050 #### [facility] [address] [place], [address] Glucose [Mass/Vol] 89 mg/dL Normal 74-106 [facility] Comment on above: Order Comment: Order Date: 07/17/24 Order Info: 0786-1 - CMP Performed By: #### L 502.0250, L100.0500, L300.3900, L500.4050 #### [facility] [address] [place], [address] Potassium [Moles/Vol] 4.2 mmol/L Normal 3.5-5.1 [facility] Comment on above: Order Comment: Order Date: 07/17/24 Order Info: 0786-1 - CMP Performed By: #### L 502.0250, L100.0500, L300.3900, L500.4050 #### [facility] [address] [place], [address] Sodium [Moles/Vol] 140 mmol/L Normal 136-145 [facility] Comment on above: Order Comment: Order Date: 07/17/24 Order Info: 0786-1 - CMP Performed By: #### L 502.0250, L100.0500, L300.3900, L500.4050 #### [facility] [address] [place], [address] T PROT 7.5 g/dL Normal 6.4-8.2 [facility] Comment on above: Order Comment: Order Date: 07/17/24 Order Info: 0786-1 - CMP Performed By: #### L 502.0250, L100.0500, L300.3900, L500.4050 #### [facility] [address] [place], [address] Urea nitrogen [Mass/Vol] 24 mg/dL High 7-18 [facility] Comment on above: Order Comment: Order Date: 07/17/24 Order Info: 0786-1 - CMP Performed By: #### L 502.0250, L100.0500, L300.3900, L500.4050 #### [facility] [address] [place], [address] Erythrocyte distribution wid th ratioOrdered By: Giovany Whittington on 07-17-2024 Erythrocyte distribution width (RBC) [Ratio] 12.9 % 11.6-14.6 [facility] Erythrocyte distribution wid th standard deviationOrdered By: Giovany Whittington on 07-17-2024 Erythrocyte distribution width (RBC) [Entitic vol] 44.8 fL High 35.1-43.9 [facility] Erythrocyte distribution width (RBC) [Ratio] 44.8 fl High 35.1-43.9 [facility] [facility] Estimated glomerular filtrat ion rate (GFR) AmericanOrdered By: Giovany Whittington on 07-17-2024 Estimated GFR (MDRD) Amer 113 mL/min >60 [facility] Comment on above: GFR Calc Glomerular filtration rate ( GFR) estimationOrdered By: Giovany Whittington on 07-17-2024 Estimated GFR (MDRD) Non-Af Amer 93 mL/min >60 [facility] Comment on above: Non- GFR Calc GFR/1.73 sq M.predicted among non-blacks MDRD (S/P/Bld) [Vol rate/Area] 93 mL/min/{1.73_m2} >60 [facility] Comment on above: Non- GFR Calc Glucose measurementOrdered B y: Giovany Whittington on 07-17-2024 Glucose [Mass/Vol] 89 mg/dL 74-106 [facility] Hematocrit Auto (Bld) [Volum e fraction]Ordered By: Giovany Whittington on 07-17-2024 Hematocrit (Bld) [Volume fraction] 40.7 % 37-47 [facility] Hemoglobin measurementOrdere d By: Giovany Whittington on 07-17-2024 Hemoglobin (Bld) [Mass/Vol] 12.9 g/dL 12.0-15.0 [facility] International normalized rat io (INR) calculationOrdered By: Giovany Whittington on 07-17-2024 INR Coag (Bld) [Relative time] 3.8 {INR} [facility] Laboratory - Chemistry and C hemistry - challengeOrdered By: Giovany Whittington on 07-17-2024 AST [Catalytic activity/Vol] 24 U/L 15-37 [facility] MCV (mean corpuscular volume ) determinationOrdered By: Giovany Whittington on 07-17-2024 MCV (RBC) [Entitic vol] 93.6 fL 81-99 [facility] Mean corpuscular hemoglobin (MCH) determinationOrdered By: Giovany Whittington on 07-17-2024 MCH (RBC) [Entitic mass] 29.7 pg 27.0-32.0 [facility] Mean corpuscular hemoglobin concentration (MCHC) determinationOrdered By: Giovany Whittington on 07-17-2024 MCHC (RBC) [Mass/Vol] 31.7 g/dL Low 32-36 [facility] Mean platelet volume determi nationOrdered By: Giovany Whittington on 07-17-2024 Platelet mean volume (Bld) [Entitic vol] 10.6 fL 6.2-12.0 [facility] Microalb:Creat Ratio,Random URon 07-17-2024 Creatinine [Mass/Vol] 60.90 mg/dL Normal NO RAN GE EST. [facility] Comment on above: Order Comment: Order Date: 07/17/24 Order Info: [id number] - MIACRE Performed By: #### L 502.0250, L100.0500, L300.3900, L500.4050 #### [facility] Laboratory [facility] [address] [place], [place], [address] MALB:CRE TNP Normal <30 mg/g CRE [facility] Comment on above: Order Comment: Order Date: 07/17/24 Order Info: [id number] - MIACRE Performed By: #### L 502.0250, L100.0500, L300.3900, L500.4050 #### [facility] [address] [place], [address] MICROALBUMIN,UR < 5.0 Normal NO RANGE EST. [facility] Comment on above: Order Comment: Order Date: 07/17/24 Order Info: [id number] - MIACRE Performed By: #### L 502.0250, L100.0500, L300.3900, L500.4050 #### [facility] [address] [place], [address] Platelet countOrdered By: Robbi Whittington on 07-17-2024 Platelets (Bld) [#/Vol] 217 10*3/uL 150-450 [facility] Potassium measurementOrdered By: Giovany Whittington on 07-17-2024 Potassium [Moles/Vol] 4.2 mmol/L 3.5-5.1 [facility] Prothrombin Time w/INRon INR Coag (PPP) [Relative time] 3.8 {INR} Normal [facility] Comment on above: Order Comment: Order Date: 07/17/24 Order Info: [id number] - PT Performed By: #### L 502.0250, L100.0500, L300.3900, L500.4050 #### [facility] [address] [place], [address] PT Coag (PPP) [Time] 38.2 s High 11.7-14.9 [facility] Comment on above: Order Comment: Order Date: 07/17/24 Order Info: [id number] - PT Performed By: #### L 502.0250, L100.0500, L300.3900, L500.4050 #### [facility] [address] [place], [address] Prothrombin timeOrdered By: Giovany Whittington on 07-17-2024 PT Coag (PPP) [Time] 38.2 s High 11.7-14.9 [facility] RBC Auto (Bld) [#/Vol]Ordere d By: Giovany Whittington on 07-17-2024 RBC (Bld) [#/Vol] 4.35 10*6/uL 4.2-5.4 [facility] Random urine microalbumin me asurementOrdered By: Giovany Whittington on 07-17-2024 Urine Random Microalbumin < 5.0 mg/L NO RANGE EST. [facility] Serum anion gap measurementO rdered By: Giovany Whittington on 07-17-2024 Anion gap [Moles/Vol] 4 mmol/L Low 5-15 [facility] Serum globulin measurementOr dered By: Giovany Whittington on 07-17-2024 Globulin (S) [Mass/Vol] 3.6 g/dL 2.2-4.2 [facility] Serum or plasma alanine gerber otransferase (ALT) measurementOrdered By: Giovany Whittington on 07-17-2024 ALT [Catalytic activity/Vol] 35 U/L 13-56 [facility] Serum or plasma albumin felix urement (mass/volume)Ordered By: Giovany Whittington on 07-17-2024 Albumin [Mass/Vol] 3.9 g/dL 3.2-5.0 [facility] Serum or plasma alkaline anna sphatase measurementOrdered By: Giovany Whittington on 07-17-2024 ALP [Catalytic activity/Vol] 41 U/L Low 45-117 [facility] Serum or plasma calcium felix urement (mass/volume)Ordered By: Giovany Whittington on 07-17-2024 Calcium [Mass/Vol] 9.5 mg/dL 8.5-10.1 [facility] Serum or plasma creatinine m easurement (mass/volume)Ordered By: Giovnay Whittington on 07-17-2024 Creatinine [Mass/Vol] 0.70 mg/dL 0.55-1.02 [facility] Comment on above: The validity of the calculated GFR & GFRAA in patients over 70 years has not been determined. Clinical correlation is essential. Serum or plasma urea nitroge n measurement (mass/volume)Ordered By: Giovany Whittington on 07-17-2024 Urea nitrogen [Mass/Vol] 24 mg/dL High 7-18 [facility] Sodium levelOrdered By: Giovany Whittington on 07-17-2024 Sodium [Moles/Vol] 140 mmol/L 136-145 [facility] Total proteinOrdered By: Orly Whittington on 07-17-2024 Protein [Mass/Vol] 7.5 g/dL 6.4-8.2 [facility] Urine albumin/creatinine rat io for detection of microalbuminuriaOrdered By: Giovany Whittington on 07-17-2024 Urine Microalbumin/Creatinine Ratio TNP [facility] Comment on above: Test not performed Urine creatinine measurement (mass/volume)Ordered By: Giovany Whittington on 07-17-2024 Creatinine (U) [Mass/Vol] 60.90 mg/dL NO RANGE EST. [facility] White blood cell (WBC) count Ordered By: Giovany Whittington on 07-17-2024 WBC (Bld) [#/Vol] 4.9 10*3/uL 4.4-11.0 [facility] International normalized rat io (INR) calculationOrdered By: Giovany Whittington on 05-04-2024 INR Coag (Bld) [Relative time] 2.9 {INR} [facility] Prothrombin Time w/INRon INR Coag (PPP) [Relative time] 2.9 {INR} Normal [facility] Comment on above: Performed By: #### L 300.3900 #### [facility] [address] [place], [address] PT Coag (PPP) [Time] 30.1 s High 11.7-14.9 [facility] Comment on above: Performed By: #### L 300.3900 #### [facility] [address] [place], [place], [id number] [phone] Prothrombin timeOrdered By: Giovany Whittington on 05-04-2024 PT Coag (PPP) [Time] 30.1 s High 11.7-14.9 [facility] Prothrombin Time w/INRon INR Coag (PPP) [Relative time] 2.3 {INR} Normal [facility] Comment on above: Performed By: #### L 300.3900 #### [facility] [address] [place], [place], [id number] PT Coag (PPP) [Time] 24.9 s High 11.7-14.9 [facility] Comment on above: Performed By: #### L 300.3900 #### [facility] [address] [place], [address] Absolute lymphocyte countOrd ered By: Giovany Whittington on 07-20-2023 Lymphocytes Auto (Unsp spec) [#/Vol] 0.85 10*3/uL 0.83-4.51 [facility] Automated lymphocyte count a s percentage of total leukocytesOrdered By: Giovany Whittington on 07-20-2023 Lymphocytes/100 WBC Auto (Unsp spec) 21.2 % 19-41 [facility] Basophil percentageOrdered B y: Giovany Whittington on 07-20-2023 Basophils/100 WBC (Bld) 0.7 % 0-1 [facility] Bilirubin [Mass/Vol] 0.60 mg/dL 0.20-1.00 [facility] Comment on above: For patients on eltr ombopag therapy, use of Dimension [place] TBIL is not recommended. Chloride [Moles/Vol] 108 mmol/L 98-107 [facility] Cholesterol [Mass/Vol] 179 mg/dL <200 [facility] Comment on above: <200 mg/dL Desirable 200-240 mg/dL Borderline >240 mg/dL High Risk Eosinophils/100 WBC (Bld) 1.7 % 0-5 [facility] Glucose [Mass/Vol] 81 mg/dL 74-106 [facility] Hemoglobin (Bld) [Mass/Vol] 13.9 g/dL 12.0-15.0 [facility] Monocytes/100 WBC (Bld) 8.0 % 0-10 [facility] Neutrophils (Bld) [#/Vol] 2.7 10*3/uL 2.0-7.7 [facility] Neutrophils/100 WBC (Bld) 68.2 % 47-70 [facility] Potassium [Moles/Vol] 4.1 mmol/L 3.5-5.1 [facility] Protein [Mass/Vol] 7.3 g/dL 6.4-8.2 [facility] Sodium [Moles/Vol] 140 mmol/L 136-145 [facility] Triglyceride [Mass/Vol] 55 mg/dL <199 [facility] Comment on above: The drugs N-Acetylcy steine and Metamizole may falsely depress this assay.Serum Triglycerides Reference Interval Normal <150 mg/dL Borderline high 150 - 199 mg/dL High 200 - 499 mg/dL Very High > or = 500 mg/dL WBC (Bld) [#/Vol] 4.0 10*3/uL 4.4-11.0 [facility] Determination of erythrocyte mean corpuscular volume (MCV)Ordered By: Giovany Whittington on 07-20-2023 MCV (RBC) [Entitic vol] 92.9 fL 81-99 [facility] Erythrocyte distribution wid th ratioOrdered By: Giovany Whittington on 07-20-2023 Erythrocyte distribution width (RBC) [Ratio] 14.0 % 11.6-14.6 [facility] Erythrocyte distribution wid th standard deviationOrdered By: Giovany Whittington on 07-20-2023 Erythrocyte distribution width (RBC) [Entitic vol] 47.8 fL 35.1-43.9 [facility] Hematocrit Auto (Bld) [Volum e fraction]Ordered By: Giovany Whittington on 07-20-2023 Hematocrit (Bld) [Volume fraction] 43.0 % 37-47 [facility] Immature granulocytes/100 WB C Auto (Bld)Ordered By: Giovany Whittington on 07-20-2023 Immature granulocytes/100 WBC (Bld) 0.200 % 0.0-0.9 [facility] Comment on above: IG% - Immature Granu locytes (promyelocytes, myelocytes and metamyelocytes) > 1% indicates that a LEFT SHIFT is Present. Laboratory - Chemistry and C hemistry - challengeOrdered By: Giovany Whittington on 07-20-2023 Albumin/Globulin [Mass ratio] 1.1 {ratio} 0.9-2.4 [facility] ALP [Catalytic activity/Vol] 42 U/L 45-117 [facility] ALT [Catalytic activity/Vol] 61 U/L 13-56 [facility] Cholesterol in HDL [Mass/Vol] 42 mg/dL >40 [facility] Comment on above: The drugs N-Acetylcy steine and Metamizole may falsely depress this assay. Reference Range HDL <40 mg/dL Low HDL Cholesterol HDL >or= 60 mg/dL High HDL Cholesterol Cholesterol in LDL [Mass/Vol] 126 mg/dL 0-130 [facility] CO2 [Moles/Vol] 26.0 mmol/L 21.0-32.0 [facility] Ferritin [Mass/Vol] 122 ng/mL 8-252 [facility] Globulin (S) [Mass/Vol] 3.4 g/dL 2.2-4.2 [facility] Urea nitrogen/Creatinine [Mass ratio] 27.6 mg/mg 10-20 [facility] Laboratory - CoagulationOrde red By: Giovany Whittington on 07-20-2023 INR Coag (Bld) [Relative time] 2.2 {INR} [facility] PT Coag (PPP) [Time] 24.2 s 11.7-14.9 [facility] Laboratory - Hematology and Cell countsOrdered By: Giovany Whittington on 07-20-2023 MCH (RBC) [Entitic mass] 30.0 pg 27.0-32.0 [facility] MCHC (RBC) [Mass/Vol] 32.3 g/dL 32-36 [facility] Nucleated RBC/100 WBC (Bld) [Ratio] 0 % 0-5 [facility] Platelet mean volume (Bld) [Entitic vol] 10.4 fL 6.2-12.0 [facility] Platelets (Bld) [#/Vol] 231 10*3/uL 150-450 [facility] No Panel InformationOrdered By: Giovany Whittington on 07-20-2023 Urine Microalbumin/Creatinine Ratio TNP [facility] Comment on above: Test not performed Estimated GFR (MDRD) Amer 109 mL/min >60 [facility] Comment on above: GFR Calc Estimated GFR (MDRD) Non-Af Amer 90 mL/min >60 [facility] Comment on above: Non- GFR Calc VLDL Cholesterol 11 mg/dL 5-40 [facility] Qualitative QuantiFERON-TB g old in tube testOrdered By: Giovany Whittington on 07-20-2023 M. tuberculosis tuberculin stim IFN-g Ql (Bld) 0.03 IU/mL . [facility] RBC Auto (Bld) [#/Vol]Ordere d By: Giovany Whittington on 07-20-2023 RBC (Bld) [#/Vol] 4.63 10*6/uL 4.2-5.4 [facility] Serum or plasma calcium felix urement (mass/volume)Ordered By: Giovany Whittington on 07-20-2023 Calcium [Mass/Vol] 9.2 mg/dL 8.5-10.1 [facility] Serum or plasma creatinine m easurement (mass/volume)Ordered By: Giovany Whittington on 07-20-2023 Creatinine [Mass/Vol] 0.72 mg/dL 0.55-1.02 [facility] Comment on above: The validity of the calculated GFR & GFRAA in patients over 70 years has not been determined. Clinical correlation is essential. Serum or plasma urea nitroge n measurement (mass/volume)Ordered By: Giovany Whittington on 07-20-2023 Urea nitrogen [Mass/Vol] 20 mg/dL 7-18 [facility] Thin prep Papanicolaou smear with manual screeningOrdered By: Giovany Whittington on 07-20-2023 Thin prep Papanicolaou smear with manual screening < 5.0 mg/L NO RANGE EST. [facility] Thin prep Papanicolaou smear with manual screening 3.9 g/dL 3.2-5.0 [facility] Thin prep Papanicolaou smear with manual screening 31 U/L 15-37 [facility] Thin prep Papanicolaou smear with manual screening 6 5-15 [facility] Thin prep Papanicolaou smear with manual screening Comment . [facility] Comment on above: QuantiFERON-TB Gold Plus [...] smear with manual screening 0.01 IU/mL . [facility] Thin prep Papanicolaou smear with manual screening 0 IU/mL . [facility] Thin prep Papanicolaou smear with manual screening > 10.00 IU/mL . [facility] Thin prep Papanicolaou smear with manual screening Negative Negative [facility] Comment on above: No response to [...] productionof interferon gamma. Chemiluminescence immunoassaymethodologyPerformed at: [facility] [address] [id number] Director: Isra Pierre PhD, Phone: [phone] Urine creatinine measurement (mass/volume)Ordered By: Giovany Whittington on 07-20-2023 Creatinine (U) [Mass/Vol] mg/dL NO RANGE EST. [facility] INR in Blood by Coagulation assayOrdered By: Giovany Whittington on 04-22-2023 INR Coag (Bld) [Relative time] 2.1 {INR} [facility] Laboratory - CoagulationOrde red By: Giovany Whittington on 04-22-2023 PT Coag (PPP) [Time] 23.8 s 11.7-14.9 [facility] INR in Blood by Coagulation assayOrdered By: Giovany Whittington on 12-02-2022 INR Coag (Bld) [Relative time] 1.9 {INR} [facility] Laboratory - CoagulationOrde red By: Giovany Whittington on 12-02-2022 PT Coag (PPP) [Time] 21.7 s 11.7-14.9 [facility] INR in Blood by Coagulation assayOrdered By: Giovany Whittington on 11-06-2022 INR Coag (Bld) [Relative time] 1.8 {INR} [facility] Laboratory - CoagulationOrde red By: Giovany Whittington on 11-06-2022 PT Coag (PPP) [Time] 20.9 s 11.7-14.9 [facility] Absolute lymphocyte countOrd ered By: Dr. Whittington on 07-09-2022 Lymphocytes Auto (Unsp spec) [#/Vol] 1.05 10*3/uL 0.83-4.51 [facility] Basophil percentageOrdered B y: Dr. Whittington on 07-09-2022 Basophils/100 WBC (Bld) 0.4 % 0-1 [facility] Bilirubin [Mass/Vol] 0.40 mg/dL 0.20-1.00 [facility] Comment on above: For patients on eltr ombopag therapy, use of Dim[place] TBIL is not recommended. Chloride [Moles/Vol] 105 mmol/L 98-107 [facility] Cholesterol [Mass/Vol] 233 mg/dL <200 [facility] Comment on above: <200 mg/dL Desirable 200-240 mg/dL Borderline >240 mg/dL High Risk Eosinophils/100 WBC (Bld) 1.7 % 0-5 [facility] Glucose [Mass/Vol] 84 mg/dL 74-106 [facility] Neutrophils (Bld) [#/Vol] 3.3 10*3/uL 2.0-7.7 [facility] Neutrophils/100 WBC (Bld) 68.4 % 47-70 [facility] Potassium [Moles/Vol] 4.7 mmol/L 3.5-5.1 [facility] Protein [Mass/Vol] 7.0 g/dL 6.4-8.2 [facility] Sodium [Moles/Vol] 140 mmol/L 136-145 [facility] Triglyceride [Mass/Vol] 91 mg/dL <199 [facility] Comment on above: The drugs N-Acetylcy steine and Metamizole may falsely depress this assay.Serum Triglycerides Reference Interval Normal <150 mg/dL Borderline high 150 - 199 mg/dL High 200 - 499 mg/dL Very High > or = 500 mg/dL WBC (Bld) [#/Vol] 4.8 10*3/uL 4.4-11.0 [facility] Blood erythrocytes count (nu mber/volume)Ordered By: Dr. Whittington on 07-09-2022 RBC (Bld) [#/Vol] 4.85 10*6/uL 4.2-5.4 [facility] Blood hemoglobin measurement (mass/volume)Ordered By: Dr. Whittington on 07-09-2022 Hemoglobin (Bld) [Mass/Vol] 14.3 g/dL 12.0-15.0 [facility] Blood lymphocytes/100 leukoc ytesOrdered By: Dr. Whittington on 07-09-2022 Lymphocytes/100 WBC (Bld) 21.8 % 19-41 [facility] Blood monocytes/100 leukocyt esOrdered By: Dr. Whittington on 07-09-2022 Monocytes/100 WBC (Bld) 7.5 % 0-10 [facility] Blood platelet mean volumeOr dered By: Dr. Whittington on 07-09-2022 Platelet mean volume (Bld) [Entitic vol] 10.6 fL 6.2-12.0 [facility] Determination of erythrocyte mean corpuscular volume (MCV)Ordered By: Dr. Whittington on 07-09-2022 MCV (RBC) [Entitic vol] 94.0 fL 81-99 [facility] Hematocrit Auto (Bld) [Volum e fraction]Ordered By: Dr. Whittington on 07-09-2022 Hematocrit (Bld) [Volume fraction] 45.6 % 37-47 [facility] Laboratory - Chemistry and C hemistry - challengeOrdered By: Dr. Whittington on 07-09-2022 ALP [Catalytic activity/Vol] 31 U/L 45-117 [facility] ALT [Catalytic activity/Vol] 24 U/L 13-56 [facility] CO2 [Moles/Vol] 28.0 mmol/L 21.0-32.0 [facility] Globulin (S) [Mass/Vol] 3.3 g/dL 2.2-4.2 [facility] Urea nitrogen/Creatinine [Mass ratio] 26.4 mg/mg 10-20 [facility] Laboratory - Hematology and Cell countsOrdered By: Dr. Whittington on 07-09-2022 Erythrocyte distribution width (RBC) [Entitic vol] 49.5 fL 35.1-43.9 [facility] Erythrocyte distribution width (RBC) [Ratio] 14.3 % 11.6-14.6 [facility] Immature granulocytes/100 WBC (Bld) 0.200 % 0.0-0.9 [facility] Comment on above: IG% - Immature Granu locytes (promyelocytes, myelocytes and metamyelocytes) > 1% indicates that a LEFT SHIFT is Present. MCH (RBC) [Entitic mass] 29.5 pg 27.0-32.0 [facility] Nucleated RBC/100 WBC (Bld) [Ratio] 0 % 0-5 [facility] MCHC Auto (RBC) [Mass/Vol]Or dered By: Dr. Whittington on 07-09-2022 MCHC (RBC) [Mass/Vol] 31.4 g/dL 32-36 [facility] No Panel InformationOrdered By: Dr. Whittington on 07-09-2022 Estimated GFR (MDRD) Amer 117 mL/min >60 [facility] Comment on above: GFR Calc Estimated GFR (MDRD) Non-Af Amer 97 mL/min >60 [facility] Comment on above: Non- GFR Calc Thyroid Stimulating Hormone (TSH) 2.04 uIU/mL 0.358-3.74 [facility] Urine Microalbumin/Creatinine Ratio 6.7 mg/g CRE <30 [facility] Platelets bldOrdered By: Dr. Whittington on 07-09-2022 Platelets (Bld) [#/Vol] 243 10*3/uL 150-450 [facility] Serum or plasma albumin felix urement (mass/volume)Ordered By: Dr. Whittington on 07-09-2022 Albumin [Mass/Vol] 3.7 g/dL 3.2-5.0 [facility] Serum or plasma albumin/glob ulin mass ratioOrdered By: Dr. Whittington on 07-09-2022 Albumin/Globulin [Mass ratio] 1.1 {ratio} 0.9-2.4 [facility] Serum or plasma calcium felix urement (mass/volume)Ordered By: Dr. Whittington on 07-09-2022 Calcium [Mass/Vol] 8.9 mg/dL 8.5-10.1 [facility] Serum or plasma cholesterol in HDL measurement (mass/volume)Ordered By: Dr. Whittington on 07-09-2022 Cholesterol in HDL [Mass/Vol] 50 mg/dL >40 [facility] Comment on above: The drugs N-Acetylcy steine and Metamizole may falsely depress this assay. Reference Range HDL <40 mg/dL Low HDL Cholesterol HDL >or= 60 mg/dL High HDL Cholesterol Serum or plasma cholesterol in VLDL measurement (mass/volume)Ordered By: Dr. Whittington on 07-09-2022 Cholesterol in VLDL [Mass/Vol] 18 mg/dL 5-40 [facility] Serum or plasma creatinine m easurement (mass/volume)Ordered By: Dr. Whittington on 07-09-2022 Creatinine [Mass/Vol] 0.68 mg/dL 0.55-1.02 [facility] Comment on above: The validity of the calculated GFR & GFRAA in patients over 70 years has not been determined. Clinical correlation is essential. Serum or plasma low density lipoprotein (LDL) cholesterol measurement (mass/volume)Ordered By: Dr. Whittington on 07-09-2022 Cholesterol in LDL [Mass/Vol] 165 mg/dL 0-130 [facility] Serum or plasma urea nitroge n measurement (mass/volume)Ordered By: Dr. Whittington on 07-09-2022 Urea nitrogen [Mass/Vol] 18 mg/dL 7-18 [facility] Thin prep Papanicolaou smear with manual screeningOrdered By: Dr. Whittington on 07-09-2022 Thin prep Papanicolaou smear with manual screening 15 U/L 15-37 [facility] Thin prep Papanicolaou smear with manual screening 7 5-15 [facility] Thin prep Papanicolaou smear with manual screening 7.6 mg/L NO RANGE EST. [facility] Urine creatinine measurement (mass/volume)Ordered By: Dr. Whittington on 07-09-2022 Creatinine (U) [Mass/Vol] 113.00 mg/dL NO RANGE EST. [facility] Whole blood hemoglobin A1c/t otal hemoglobin ratio (mass fraction)Ordered By: Dr. Whittington on 07-09-2022 HbA1c (Bld) [Mass fraction] 5.4 % 3.8-5.6 [facility] Comment on above: Normal < 5.7 % Predi abetic 5.7 - 6.4 % Diabetic >or= 6.5 % Please note range changes. INR in Blood by Coagulation assayon 12-19-2021 INR Coag (Bld) [Relative time] 1.9 {INR} [facility] Work Phone: Laboratory - Coagulationon 0 12-19-2021 PT Coag (PPP) [Time] 21.8 s 11.7-14.9 [facility] Work Phone: Vital Signs Date Time Vital Sign Value Performing Clinician Faci lity 08-13-2023 08:38-0400 Body temperature 98.5 [degF] Dr. Giovany Whittington Work Phone: [facility] 08-13-2023 08:38-0400 Diastolic blood pressure 44 mm[Hg] Dr. Giovany Whittington Work Phone: [facility] 08-13-2023 08:38-0400 Heart rate 62 /min Dr. Giovany Whittington Work Phone: [facility] 08-13-2023 08:38-0400 Respiratory rate 14 /min Dr. Giovany Whittington Work Phone: [facility] 08-13-2023 08:38-0400 SaO2% (BldA) [Mass fraction] 97 % Dr. Giovany Whittington Work Phone: [facility] 08-13-2023 08:38-0400 Systolic blood pressure 95 mm[Hg] Dr. Giovany Whittington Work Phone: [facility] 08-13-2023 06:25-0400 Body height 162.[address] Giovany Whittington Work Phone: [facility] 08-13-2023 06:25-0400 Body mass index (BMI) [Ratio] 25 kg/m2 Dr. Giovany Whittington Work Phone: [facility] 08-13-2023 06:25-0400 Body weight [address] Giovany Whittington Work Phone: [facility] 07-27-2023 14:13-0500 Body mass index (BMI) [Ratio] 24.7 kg/m2 Dr. Giovany Whittington Work Phone: [facility] 07-27-2023 14:13-0500 Body temperature 98.1 [degF] Dr. Giovany Whittington Work Phone: [facility] 07-27-2023 14:13-0500 Body weight 65.[address] Giovany Whittington Work Phone: [facility] 07-27-2023 14:13-0500 Diastolic blood pressure 63 mm[Hg] Dr. Giovany Whittington Work Phone: [facility] 07-27-2023 14:13-0500 Heart rate 62 /min Dr. Giovany Whittington Work Phone: [facility] 07-27-2023 14:13-0500 Respiratory rate 16 /min Dr. Giovany Whittington Work Phone: [facility] 07-27-2023 14:13-0500 SaO2% (BldA) [Mass fraction] 98 % Dr. Giovany Whittington Work Phone: [facility] 07-27-2023 14:13-0500 Systolic blood pressure 104 mm[Hg] Dr. Giovany Whittington Work Phone: [facility] Encounters Encounter Date Encounter Type Care Provider Facility Start: 12-22-2024 ambulatory Giovany Whittington Facility:[facility] Start: 12-04-2024 End: 12-04-[address] Giovany Whittington MD Work Phone: -[facility] Start: 12-04-2024 End: 12-04-[address] Giovany Whittington MD -[facility] Janina Pabon Start: 12-04-2024 End: 12-04-2024 ambulatory Giovany Whittington Facility:[facility] Start: 11-21-2024 End: 12-21-[address] Giovany Whittington MD -[facility] Work Phone: Start: 11-21-[address] Giovany Whittington MD -Porfirio Roa Work Phone: Start: 11-21-2024 End: 12-21-[address] Giovany Whittington MD Work Phone: -[facility] Janina Start: 10-18-2024 End: 10-18-[address] Giovany Whittington MD -Laboratory [facility] Start: 10-18-2024 End: 10-18-[address] Giovany Whittington MD Work Phone: [facility] Work Phone: Start: 08-09-2024 End: 08-09-[address] Giovany Whittington MD Work Phone: [facility] Work Phone: Start: 08-09-2024 End: 08-09-[address] Giovany Whittington MD -Laboratory, [facility] Start: 08-09-2024 End: 08-09-2024 ambulatory Giovany Whittington Facility:[facility] Start: 08-03-2024 End: 08-03-[address] Giovany Whittington MD Work Phone: [facility] Work Phone: Start: 08-03-2024 End: 08-03-[address] Giovany Whittington MD -Outpatient Bone Densitometry Work Phone: Start: 08-03-2024 End: 08-03-2024 ambulatory Giovany Whittington Facility:[facility] Start: 07-24-2024 End: 07-24-[address] Giovany Whittington MD Work Phone: [facility] Work Phone: Start: 07-24-2024 End: 07-24-[address] Giovany Whittington MD -Laboratory, [facility] Start: 07-24-2024 End: 07-24-2024 ambulatory Giovany Whittington Facility:[facility] Start: 07-17-2024 End: 07-17-[address] Giovany Whittington MD Work Phone: [facility] Work Phone: Start: 07-17-2024 End: 07-17-[address] Giovany Whittington MD -Laboratory, [facility] Start: 07-17-2024 End: 07-17-2024 ambulatory Giovany Whittington Facility:[facility] Start: 05-04-2024 End: 05-04-[address] Giovany Whittington MD -[facility] Start: 05-04-2024 End: 05-04-2024 ambulatory Giovany Whittington Facility:[facility] Start: 02-22-2024 ambulatory Giovany Whittington Facility:[facility] Start: 02-08-2024 End: 02-08-2024 ambulatory Giovany Whittington Facility:[facility] Start: 08-13-2023 Non-patient / Non-visit Dr. Robbi Whittington Work Phone: [facility] Start: 08-13-2023 End: 08-13-2023 Admission to same day surgery center Dr. Giovany Whittington Work Phone: [facility] Start: 08-13-2023 End: 08-13-[address] Giovany Whittington Work Phone: [facility] Work Phone: Start: 07-27-2023 End: 07-27-[address] Giovany Whittington Work Phone: [facility] Work Phone: Start: 07-20-2023 End: 07-20-2023 ambulatory [facility] Work Phone: Start: 07-20-2023 End: 07-20-2023 Patient encounter procedure [facility] Start: 04-22-2023 End: 04-22-2023 ambulatory [facility] Work Phone: Start: 04-22-2023 End: 04-22-2023 Patient encounter procedure [facility] Start: 12-16-2022 End: 12-16-2022 ambulatory [facility] Work Phone: Start: 12-16-2022 End: 12-16-2022 Patient encounter procedure [facility]-Outpatient Breast Imaging Work Phone: Start: 12-02-2022 End: 12-02-2022 ambulatory [facility] Work Phone: Start: 12-02-2022 End: 12-02-2022 Patient encounter procedure [facility] Start: 11-06-2022 End: 11-06-2022 Patient encounter procedure [facility] Start: 07-09-2022 End: 07-09-2022 ambulatory [facility] Work Phone: Start: 07-09-2022 End: 07-09-2022 Patient encounter procedure [facility] Start: 12-19-2021 End: 12-21-2021 Discharged Recurring [facility] Start: 12-12-2021 End: 12-12-2021 Patient encounter procedure [facility]-Outpatient Breast [facility] Procedures Date Procedure Procedure [...] not performed Start: 08-13-[address] Giovany roman Work Phone: Start: 12-16-2022 Screening mammography Start: 12-12-2021 Screening mammograph y of bilateral breasts Plan of Treatment Date Care Activity Detail Author Start: 08-13-2023 Patient discharge [facility] Patient referral [facility] Work Phone: Payers Date Payer Category Payer Self-pay [id number] 2024 Unknown [id number] 2013 Unknown [id number] Unknown [facility] [id number] Unknown [id number] 2.16.8 [id number] Unknown [id number] 2.16.8 [id number] Unknown [id number] 2.16.8 [id number] Unknown [id number] 2.16.8 [id number] Unknown [id number] 2.16.8 [id number] Unknown [id number] 2.16.8 [id number] Unknown [id number] 2.16.8 [id number] Unknown [id number] 2.16.8 [id number] Unknown [id number] 2.16.8 [id number] Unknown [id number] 2.16.8 [id number] Unknown [id number] 2.16.8 [id number] Social History Date Type Detail Facility Start: 04-30-2013 End: 07-27-2023 Tobacco smoking status WVIS Unknown if ever smoked [facility] Start: 1970 Sex Assigned At Female [facility] Start: 07-27-2023 End: 07-27-2023 Tobacco smoking status NHIS Never smoked tobacco (finding) [facility] Start: 07-29-2024 End: 08-17-2024 Sex Female (finding) [facility] Goals Date Patient Goal Desired Activity /State Mental Status Date Assessment Result Facility 08-13-2023 Cognitive function Voice/Name [facility] Work Phone: Procedure note 08-13-2023 Note Date & Type Note Facility 08-13-2023 Procedure note [facility] Discharge summary Note Date & Type Note Facility Discharge summary Note Date/Time August 13, 2023 8:16am [facility] Medical Records Department [address] [place] [address] Instructions for Home/Discharge Instructions 08/13/23 0815 MR#: [id number] Acct: [id number] Name: GAYLE SOTELO Rep #:[id number] : 1970 52 From: Vera Deleon MD PCP: Dr. Giovany Whittington MD [place] [place] Discharge Instructions Dressing / Incision Additional Dressing/Incision [...] CC: Dr. Giovany Whittington MD ~ Signed [facility] Work Phone: Discharge summary Note Date & Type Note Facility Discharge summary Note Date/Time August 13, 2023 8:23am [facility] Medical Records Department [address] [place] [address] Instructions for Home/Discharge Instructions 08/13/23820 MR#: [id number] Acct: [id number] Name: GAYLE SOTELO Rep #:[id number] : 1970 52 From: Vera Deleon MD PCP: Dr. Giovany Whittington MD Status:[facility] [place] Discharge Instructions Dressing / Incision Additional Dressing/Incision [...] Order can be placed): Home, Self Care 03/22/24 0822<Electronically signed by Vera Deleon MD>Vera Deleon MD CC: Dr. Giovany Whittington MD ~ Signed [facility] Work Phone: Evaluation note Note Date & Type Note Facility Evaluation note No assessment information availa ble [facility] Work Phone: Evaluation note Note Date & Type Note Facility Evaluation note Diagnosis Onset Date Basal cell carcinoma (BCC) of forehead acute Basal cell carcinoma (BCC) of forehead acute [facility] Work Phone: History and physical note Note Date & Type Note Facility History and physical note Note Date/Time August 13, 2023 7:0 9am [facility] Medical Records Department [address] [place] [address] History & Physical Exam 08/13/23 0707 MR#: [id number] Acct: [id number] Name: GAYLE SOTELO Rep #:[id number] : 1970 52 From: Vera Deleon MD PCP: Dr. Giovany Whittington MD Status:[facility] Location: [place] [address] History and Physical Date of Admission: 08/13/23 [...] Whittington MD; Dr. Vera Deleon MD~ Signed [facility] Work Phone: Reason for referral (narrative) Note Date & Type Note Facility Reason for referral (narrative) No reason for referral information available [facility] Work Phone: Chief Complaint and Reason for Visit Chief Complaint SCREENING Chief Complaint SHAVE BX OF CARDENAS/NON HEALING LESION Chief Complaint SHAVE BX OF CARDENAS/NON HEALING LESION BUMP ON FOREHEAD FROM BIOPSY Reason for Visit Basal cell carcinoma (BCC) of forehead Basal cell carcinoma (BCC) of forehead Chief Complaint Admit Date SCREENING August 03, 2024 1:1 2pm Chief Complaint Admit Date INR- DRAW November 21, 2024 10:41 am Advance Directives No Advanced Directives Records Found Advance Directive Response Recorded Date/ Time Living Will No April 30 7:16pm Power of Snuff Container Inspector No April 30, 2013 7:16pm Advance Directive Response Recorded Date/ Time Living Will No April 30 6:16pm Power of Snuff Container Inspector No April 30, 2013 6:16pm Family History [...] October 18, 2024 End: October 18, 2024 Team Status: Active Member Role/Relationship Status Dates Dr. Giovany Whittington MD Primary Care Provider Active Team Status: Inactive Member Role/Relationship Status Dates Dr. Giovany Whittington MD Primary Care Provider Active Start: October 18, 2024 End: October 18, 2024 Dr. Giovany Whittington MD Attending Provider Active St art: October 18, 2024 End: October 18, 2024 Dr. Giovany Whittington MD Referring Provider Active St art: October 18, 2024 End: October 18, 2024 Team Status: Active Member Role/Relationship Status Dates Dr. Giovany Whittington MD Primary Care Provider Active Start: November 21, 2024 Dr. Giovany Whittington MD Attending Provider Active St art: November 21, 2024 Dr. Giovany Whittington MD Referring Provider Active St art: November 21, 2024 Team Status: Inactive Member Role/Relationship Status Dates Dr. Giovany Whittington MD Primary Care Provider Active Start: December 04, 2024 End: December 04, 2024 Dr. Giovany Whittington MD Attending Provider Active St art: December 04, 2024 End: December 04, 2024 Dr. Giovany Whittington MD Referring Provider Active St art: December 04, 2024 End: December 04, 2024 Team Status: Inactive Member Role/Relationship Status Dates Dr. Giovany Whittington MD Primary Care Provider Active Start: November 21, 2024 End: December 21, 2024 Dr. Giovany Whittington MD Attending Provider Active St art: November 21, 2024 End: December 21, 2024 Dr. Giovany Whittington MD Referring Provider Active St art: November 21, 2024 End: December 21, 2024 INFORMATION SOURCE (unrecogn ized section and content) DATE CREATED AUTHOR 12/24/2024 [facility] FOR RECORDS PERTAINING TO PATIENTS WHO ARE [...] BE BASED ON THE PRIMARY CLINICAL RECORDS. [employer] provides no warranty or guarantee of the accuracy or completeness of information in this document.
[2025-02-12 12:19] LABS: Prothrombin Time (Protime)PT. 24.0 SECONDS (11.7-14.9)
== END | disposition home or self-care (01) ==
LOC: MFPLAB 10:33
PROVIDERS: PCP Family Medicine; Visit Provider Family Medicine
DX: Z79.01 Long term (current) use of anticoagulants (principal)
CPT/HCPCS: 36415; 85610

== ENCOUNTER → 2025-04-24 | Outpatient (CLI) | payer OTHER, SELFPAY ==
--- NOTE | 2025-04-24 12:43 | RAD_ITS ---
PROCEDURE: KNEE 4 OR MORE VIEWS 04/24/2025 REASON FOR EXAM: R LATERAL PROXIAML KNEE. ? OSTEOPHYTE VS GANGLION VS BONE CYST TECHNIQUE: Procedure Code: RADKN Modality: DX Procedure: KNEE 4 OR MORE VIEWS Right knee five views COMPARISON: None FINDINGS: There is a 2.5 cm corticated osteochondral fragment in the lateral joint space at the margin of the patella. There is a visible joint effusion. There is mild osteoarthritis, most severe at the patellofemoral articulation. Osteopenia is noted. Vascular calcifications are visible. RAD/Knee 4 or More Views IMPRESSION: There is a 2.5 cm corticated osteochondral fragment in the lateral joint space at the margin of the patella. Reading Location: [facility]
[2025-04-24 15:07] LABS: Hematocrit 39.1 % (37-47); Hemoglobin 12.5 g/dL (12.0-15.0); Immature Granulocytes Count 0.010 X10^3/uL (0.0-0.0); Mean Corp Hgb Conc 32.0 g/dL (32-36); Mean Corpuscular Volume 93.8 fL (81-99); Mean Platelet Vol. 10.1 fl (6.2-12.0); NRBC Flagged by Analyzer 0 % (0-5); POSITIVE DIFFERENTIAL YES; Platelet Count 171 K/mm3 (150-450); RBC Distribution Width CV 13.2 % (11.6-14.6); RBC Distribution Width SD 45.3 fl (35.1-43.9); Red Blood Count 4.17 M/mm3 (4.2-5.4); White Blood Count 5.3 K/mm3 (4.4-11.0)
[2025-04-24 15:42] LABS: Creatinine, Urine (random) 18.10 mg/dL (28.00-217.00); Microalbumin,Random Urine < 12.0 mg/L (<20 mg/L)
[2025-04-24 16:02] LABS: AST(SGOT) 29 U/L (<=31); Alanine Aminotransfer ALT/SGPT 33 U/L (<=34); Albumin, Serum 4.1 g/dL (3.5-5.0); Alkaline Phosphatase 46 U/L (35-104); Anion Gap 10 (5-15); BUN 26 mg/dL (4-19); BUN/Creat Ratio 39.2 RATIO (10-20); Calcium,Total 9.2 mg/dL (7.6-11.0); Carbon Dioxide 25.6 mmol/L (21.0-32.0); Chloride 104 mmol/L (98-108); Globulin 2.6 g/dL (2.2-4.2); Glucose 90 mg/dL (70-99); Potassium 4.1 mmol/L (3.3-5.1); Vitamin D,25 Hydroxy 26.7 ng/mL (30-100)
== END | disposition home or self-care (01) ==
LOC: MTLAB 12:39
PROVIDERS: PCP Family Medicine; Referring Provider Family Medicine; Visit Provider Family Medicine
DX: M25.761 Osteophyte, right knee (principal); I10 Essential (primary) hypertension; M85.80 Other specified disorders of bone density and structure, unspecified site
CPT/HCPCS: 36415; 73564; 80053; 82043; 82306; 82570; 85025

== ENCOUNTER → 2025-05-02 | Outpatient (CLI) | payer OTHER, SELFPAY ==
--- NOTE | 2025-05-02 15:43 | VDLE_ITS ---
Reason For Study Reason For Study: Left leg pain RIGHT LEFT CFV is compressible, spontaneous, phasic, competent GSV is normal. and demonstrates normal augmentation. CFV is partially compressible with bright Procedure intraluminal echoes consistent with Chronic DVT. This is a venous duplex using B-mode, color flow and Normal venous flow noted. spectral Doppler. FV prox-mid is compressible, spontaneous, phasic, Exam performed in department. competent and demonstrates normal augmentation. A preliminary report was called and/or faxed to FV distal duplicator is partially compressible with Jhonnyorrpily CLINICAL UNIT EDUCATOR-C. bright intraluminal echoes consistent with Chronic DVT. Venous flow ntoed. PopV duplicator is partially compressible with bright intraluminal echoes consistent with Chronic DVT. Venous flow is INCOMEPTENT for greater than 1 second. T/P trunk is partially compressible with bright intraluminal echoes consistent with Chronic DVT. PTV is compressible. LT PerV is compressible. 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 Positive for reflux in the left popliteal vein. Ordering Physician: Torres Waldron Referring Physician: Giovany Whittington MD Performed By: Gabrielle Mathews RVT and Student
== END | disposition home or self-care (01) ==
PROVIDERS: PCP Family Medicine
DX: M79.662 Pain in left lower leg (principal)
CPT/HCPCS: 93971

== ENCOUNTER 2025-05-03 14:21 | Outpatient (RCR) | payer OTHER, SELFPAY ==
[2025-05-03 18:48] LABS: Prothrombin Time (Protime)PT. 29.5 SECONDS (11.7-14.9)
== END 2025-05-03 18:00 | disposition home or self-care (01) ==
LOC: MTLAB 14:21
PROVIDERS: PCP Family Medicine; Referring Provider Family Medicine; Visit Provider Family Medicine
DX: Z79.01 Long term (current) use of anticoagulants (principal)
CPT/HCPCS: 36415; 85610